=== PATIENT | male | born 1935 | race Caucasian/White ===

== ENCOUNTER 2017-03-05 13:31 | Outpatient (CLI) | payer MEDICARE ==
[2017-03-05] MEDS ORDERED: ALBUTEROL NEB 2.5 MG/3 ML INH ONE (15:00)
--- NOTE | 2017-03-05 19:22 | XRAY Report ---
EXAM: CHEST RADIOGRAPHY EXAM DATE: 03/05/2017 03:12 PM. CLINICAL HISTORY: Chronic cough since October 2016. COMPARISON: 07/02/2014. 12/30/2013. TECHNIQUE: 2 views. FINDINGS: Lungs/Pleura: Normal volumes. No focal consolidation or evidence of edema. No pleural effusion or pne umothorax. Mediastinum: Median sternotomy wires indicating prior open heart surgery. The 3 inferior median griffin otomy wires are fractured, as before. Heart size is normal. Unchanged mild aortic tortuosity. Other: The bones are unremarkable. IMPRESSION: No acute cardiopulmonary abnormality. No potential etiology identified for chronic cough. [facility] Referring Provider Line: [phone] SITE ID: [id number]
== END 2017-03-05 13:32 | disposition home or self-care (01) ==
LOC: RT 13:31
PROVIDERS: ATTEND Physician Assistant
DX: R05 Cough (principal); R06.00 Dyspnea, unspecified; R06.2 Wheezing
CPT/HCPCS: 71046; 94060; J7613

== ENCOUNTER 2017-07-04 09:19 | Outpatient (CLI) | payer MEDICARE ==
[2017-07-04 18:01] LABS: BASOPHILS % (AUTO) 0.7 %; EOSINOPHILS # (AUTO) 0.5 10^3/uL (0.0-0.7); EOSINOPHILS % (AUTO) 8.2 %; HGB - HEMOGLOBIN 13.5 g/dL (14.0-18.0); LYMPHOCYTES # (AUTO) 1.2 10^3/uL (1.5-3.5); LYMPHOCYTES % (AUTO) 18.7 %; MEAN CORPUSCULAR HEMOGLOBIN 27.1 pg (27.0-31.0); MEAN CORPUSCULAR HGB CONC 32.5 g/dL (32.0-36.0); MEAN CORPUSCULAR VOLUME 83.5 fL (80.0-94.0); MEAN PLATELET VOLUME 7.4 fL (7.4-11.4); MONOCYTES # (AUTO) 0.6 10^3/uL (0.0-1.0); MONOCYTES % (AUTO) 9.6 %; NEUTROPHILS # (AUTO) 3.9 10^3/uL (1.5-6.6); NEUTROPHILS % (AUTO) 62.8 %; PLT - PLATELET COUNT 176 10^3/uL (130-450); RED BLOOD COUNT 4.98 10^6/uL (4.70-6.10); RED CELL DISTRIBUTION WIDTH 14.7 % (12.0-15.0); WHITE BLOOD COUNT 6.2 x10^3/uL (4.8-10.8)
[2017-07-04 18:33] LABS: HB2 TOTAL 15.6 g/dL; HEMOGLOBIN A1C 0.58 g/dL; HEMOGLOBIN A1C % 5.6 % (4.6-6.2); PSA FREE < 0.005 ng/mL (0.16-2.81)
[2017-07-04 18:35] LABS: PSA FREE % 60 % (25-100); PSA TOTAL < 0.008 ng/mL (0.000-2.000)
[2017-07-04 18:39] LABS: ALBUMIN/GLOBULIN RATIO 1.5 (1.0-2.2); ALKALINE PHOSPHATASE 66 IU/L (42-121); ALT ALANINE AMINOTRANSFERASE 17 IU/L (10-60); AST ASPARTATE AMINOTRANSFERASE 19 IU/L (10-42); BILIRUBIN,TOTAL 0.7 mg/dL (0.2-1.0); BUN - BLOOD UREA NITROGEN 27 mg/dL (6-20); CALCIUM 8.6 mg/dL (8.5-10.3); CARBON DIOXIDE - CO2 25 mmol/L (21-32); CHLORIDE 106 mmol/L (101-111); CHOL/HDL RATIO 3.3 (<5.0); CHOLESTEROL 100 mg/dL; CREATININE 1.6 mg/dL (0.6-1.2); GFR - MDRD 42 (>89); GLUCOSE 97 mg/dL (70-100); HDL CHOLESTEROL 30 mg/dL; LDL CHOLESTEROL,CALCULATED 58 mg/dL; LDL/HDL RATIO 1.9 (<3.6); SODIUM 138 mmol/L (135-145); TOTAL PROTEIN 6.7 g/dL (6.7-8.2); VLDL CHOLESTEROL 12 mg/dL
== END 2017-07-04 09:20 | disposition home or self-care (01) ==
LOC: LAB.F 09:19
PROVIDERS: ATTEND Physician Assistant
DX: Z00.00 Encounter for general adult medical examination without abnormal findings (principal)
CPT/HCPCS: 36415; 80053; 80061; 83036; 83721; 84154; 85025

== ENCOUNTER 2017-07-06 11:46 | Outpatient (CLI) | payer MEDICARE ==
[2017-07-08 23:46] LABS: ANCA SCREEN NEGATIVE (NEGATIVE)
== END 2017-07-06 11:47 | disposition home or self-care (01) ==
LOC: LAB.WCP 11:46
PROVIDERS: ATTEND Physician Assistant
DX: I77.6 Arteritis, unspecified (principal)
CPT/HCPCS: 36415; 86021

== ENCOUNTER 2017-07-13 12:25 | Outpatient (CLI) | payer MEDICARE ==
--- NOTE | 2017-07-13 14:02 | CT Report ---
CT CHEST WITHOUT CONTRAST: 07/13/2017 CLINICAL INDICATION: Shortness of breath. TECHNIQUE: Axial CT images of the chest were obtained without intravenous contrast. COMPARISON: No previous CT is available for comparison. FINDINGS: The heart and great vessels demonstrate atherosclerotic calcifications. Changes of previous cardiac surgery are present. The lungs are clear. No effusion or pneumothorax is present. Osseous structures demonstrate degenerative and postsurgical changes. Limited evaluation of upper abdominal structures demonstrates an incidental splenic cyst and normal adrenal glands. IMPRESSION: NO EVIDENT ETIOLOGY FOR THE PATIENT'S SHORTNESS OF BREATH. POSTOPERATIVE CHANGES OF PREVIOUS CARDIAC SURGERY. CT DOSE REDUCTION STATEMENT In accordance with CT protocol optimization, one or more of the following dose reduction techniques were utilized for this exam: automated exposure control, adjustment of mA and/or KV based on patient size, or use of iterative reconstructive technique. TD: 07/13/2017 13:56
== END 2017-07-13 12:26 | disposition home or self-care (01) ==
LOC: DI 12:25
PROVIDERS: ATTEND Physician Assistant
DX: R06.02 Shortness of breath (principal); I51.7 Cardiomegaly; I77.810 Thoracic aortic ectasia
CPT/HCPCS: 71250; 93306

== ENCOUNTER 2017-07-25 11:38 | Outpatient (CLI) | payer MEDICARE | END 2017-07-25 11:39 | disposition critical access hospital (66) | LOC: EMS 11:38 | PROVIDERS: ATTEND Surgery | DX: R55 Syncope and collapse (principal) | CPT/HCPCS: A0425; A0427 ==

== ENCOUNTER 2017-07-25 12:07 | Emergency (ER) | payer MEDICARE ==
--- NOTE | 2017-07-25 13:52 | ED Physician Documentation ---
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 He started to feel lightheaded but kept his position due to being honor guard. He got further lightheaded and then fainted. Awoke soon after and is feeling okay Denies injury from the fall.) Preceding symptoms: Light headed, Generalized weakness. No: Headache, Chest pain, Palpitations, Abdominal pain, Nausea / vomiting Contributing factors: No: Emotional upset, Just stood up ([place] .) Similar symptoms before: Has not had sx before Recently seen: Not recently seen Review of Systems Constitutional: denies: Fever, Chills Nose: denies: Rhinorrhea / runny nose, Congestion Throat: denies: Sore throat Cardiac: denies: Chest pain / pressure, Palpitations Respiratory: denies: Dyspnea, Cough GI: denies: Abdominal Pain, Nausea, Vomiting, Diarrhea : denies: Dysuria, Frequency Skin: denies: Rash Musculoskeletal: denies: Neck pain, Back pain Neurologic: reports: Generalized weakness, Syncope. denies: Focal weakness, Numbness, Altered mental status, Headache, Head injury Psychiatric: denies: Depressed Endocrine: denies: Weight loss PD PAST MEDICAL HISTORY - Past Medical History Cardiovascular: Hypertension, Other Respiratory: COPD Neuro: Fainting Endocrine/Autoimmune: None GI: GERD : None HEENT: Chronic sinusitis Psych: None Musculoskeletal: None Derm: None Other Past Medical History: one stent placed and 4 cm aortic aneusrym - Past Surgical History Past Surgical History: Yes General: Appendectomy, Bowel surgery, Hiatal hernia repair, Colonoscopy, EGD Ortho: Arthroscopic surgery Cardiovascular: Coronary stent, Other HEENT: Cataracts - Present Medications Home Medications: Ambulatory Orders Medication Instructions Recorded Confirmed Aspirin EC [Ecotrin] 81 mg PO DAILY 01/28/13 06/26/15 Calcium [Calcio [place]] 1,000 mg PO DAILY 01/28/13 06/26/15 Acetaminophen [Pain Relief] 1 mg PO DAILY 01/29/13 06/26/15 [place]-3/Dha/Epa/Fish Oil [Fish Oil 1,200 mg PO DAILY 01/29/13 06/26/15 [place]-3 Softgel] Atorvastatin [Lipitor] 20 mg PO DAILY 12/30/13 06/26/15 Metoprolol Succinate 12.5 mg PO DAILY 07/02/14 06/26/15 Pantoprazole [Protonix] 40 mg PO BID 07/02/14 06/26/15 Potassium Gluconate 595 mg PO DAILY 07/02/14 06/26/15 diphenhydrAMINE [Benadryl] 50 mg PO DAILY PRN 07/02/14 06/26/15 Cyanocobalamin (Vitamin B-12) 500 mg PO DAILY 04/02/15 06/26/15 [B-12] Docusate Sodium 250Mg Capsule 250 mg PO DAILY 04/02/15 06/26/15 [Colace 250Mg Capsule] Doxazosin [Cardura] 8 mg PO DAILY 04/02/15 06/26/15 Multivitamin [Multivitamins] 1 tab PO DAILY 04/02/15 06/26/15 Ubidecarenone/Vitamin E Mixed 1 cap PO DAILY 04/02/15 06/26/15 [Adq64-Vjx E 200 mg-20 Unit Sfg] - Allergies Allergies/Adverse Reactions: Allergies Allergy/AdvReac Type Severity Reaction Status Date / Time No Known Drug Allergies Allergy Verified 06/25/15 13:32 - Social History Does the pt smoke?: No Smoking Status: Never smoker Does the pt drink ETOH?: No Does the pt have substance abuse?: No - Immunizations Immunizations are current?: Yes - POLST Patient has POLST: No PD ED PE NORMAL - Vitals Vital signs reviewed: Yes - General General: Alert and oriented X 3, No acute distress, Well developed/nourished - HEENT HEENT: Atraumatic, Pharynx benign - Neck Neck: Supple, no meningeal sign, No adenopathy - Cardiac Cardiac: RRR, No murmur - Respiratory Respiratory: Clear bilaterally - Abdomen Abdomen: Soft, Non tender - Back Back: No: No CVA TTP - Derm Derm: Normal color, No rash - Extremities Extremities: No deformity, No tenderness to palpate, Normal ROM s pain, No edema , No calf tenderness / cord - Neuro Neuro: Alert and oriented X 3, No motor deficit, Normal speech Results - Vitals Vitals: Vital Signs - 24 hr 05/28/18 05/28/18 12:11 14:28 Temperature 36.0 C L 36.3 C L Heart Rate 60 57 L Respiratory 16 16 Rate Blood Pressure 134/67 H 133/71 H O2 Saturation 97 97 Oxygen O2 Source Room air - EKG (time done) 12:16 Rate: Rate (enter#) (57) Rhythm: Sinus bradycardia [place]: Normal Intervals: Normal OR QRS: Normal Ischemia: Normal ST segments. No: ST elevation c/w ischemia, ST depression - Rads (name of study) head CT Radiology: Prelim report reviewed (no acute bleed.c) PD MEDICAL DECISION MAKING - ED course Complexity details: reviewed results (no ICH), considered differential, d/w patient Departure - Departure Disposition: 01 Home, Self Care Clinical Impression: Heat syncope, initial encounter Condition: Stable Record reviewed to determine appropriate education?: Yes Instructions: ED Syncope Vasovagal Follow-Up: Rissa Lee PA [Primary Care Provider] - Comments: Stay well-hydrated. Continue usual medications. Recheck if recurrent or further problems. It sounds as you suggest that it was just the heat and standing in the same position because the blood pressure to drop momentarily. You look good now and there is no obvious concerns for more significant problems at this time. Discharge Date/Time: 07/25/17 14:30
[2017-07-25 14:29] VITALS: BP 133/71
== END 2017-07-25 14:30 | disposition home or self-care (01) ==
LOC: EDUNIT# → ED 12:07
DX: T67.1XXA Heat syncope, initial encounter (principal); I10 Essential (primary) hypertension; J44.9 Chronic obstructive pulmonary disease, unspecified; Z79.82 Long term (current) use of aspirin
CPT/HCPCS: 93005; 99283; 99284

== ENCOUNTER 2018-08-28 08:13 | Outpatient (CLI) | payer MEDICARE ==
[2018-08-28 10:17] LABS: BASOPHILS % (AUTO) 0.5 %; EOSINOPHILS # (AUTO) 0.3 10^3/uL (0.0-0.7); EOSINOPHILS % (AUTO) 4.5 %; HGB - HEMOGLOBIN 13.2 g/dL (14.0-18.0); LYMPHOCYTES # (AUTO) 1.5 10^3/uL (1.5-3.5); LYMPHOCYTES % (AUTO) 27.3 %; MEAN CORPUSCULAR HEMOGLOBIN 28.4 pg (27.0-31.0); MEAN CORPUSCULAR HGB CONC 32.1 g/dL (32.0-36.0); MEAN CORPUSCULAR VOLUME 88.4 fL (80.0-94.0); MONOCYTES # (AUTO) 0.5 10^3/uL (0.0-1.0); MONOCYTES % (AUTO) 9.4 %; NEUTROPHILS # (AUTO) 3.2 10^3/uL (1.5-6.6); NEUTROPHILS % (AUTO) 58.1 %; PLT - PLATELET COUNT 166 10^3/uL (130-450); RED BLOOD COUNT 4.65 10^6/uL (4.70-6.10); RED CELL DISTRIBUTION WIDTH 13.2 % (12.0-15.0); WHITE BLOOD COUNT 5.5 x10^3/uL (4.8-10.8)
[2018-08-28 10:32] LABS: ALBUMIN/GLOBULIN RATIO 1.4 (1.0-2.2); ALKALINE PHOSPHATASE 60 IU/L (42-121); ALT ALANINE AMINOTRANSFERASE 16 IU/L (10-60); AST ASPARTATE AMINOTRANSFERASE 18 IU/L (10-42); BILIRUBIN,TOTAL 0.9 mg/dL (0.2-1.0); BUN - BLOOD UREA NITROGEN 25 mg/dL (6-20); CALCIUM 8.9 mg/dL (8.5-10.3); CARBON DIOXIDE - CO2 22 mmol/L (21-32); CHLORIDE 105 mmol/L (101-111); CHOL/HDL RATIO 3.1 (<5.0); CHOLESTEROL 97 mg/dL; CREATININE 1.5 mg/dL (0.6-1.2); GFR - MDRD 45 (>89); GLUCOSE 97 mg/dL (70-100); HDL CHOLESTEROL 31 mg/dL; LDL CHOLESTEROL,CALCULATED 53 mg/dL; LDL/HDL RATIO 1.7 (<3.6); SODIUM 138 mmol/L (135-145); TOTAL PROTEIN 6.9 g/dL (6.7-8.2); VLDL CHOLESTEROL 13 mg/dL
== END 2018-08-28 08:14 | disposition home or self-care (01) ==
LOC: LAB.S 08:13
PROVIDERS: ATTEND Physician Assistant
DX: I10 Essential (primary) hypertension (principal); E78.5 Hyperlipidemia, unspecified; Z12.5 Encounter for screening for malignant neoplasm of prostate
CPT/HCPCS: 36415; 80053; 80061; 85025; G0103; 83721; 84153

== ENCOUNTER 2018-09-12 09:01 | Outpatient (CLI) | payer MEDICARE ==
[2018-09-12 18:11] LABS: % IRON SATURATION 27 % (20-50); IRON 65 ug/dL (45-182); TOTAL IRON BINDING CAPACITY 244 ug/dL (250-450); TRANSFERRIN 174 mg/dL (180-329)
== END 2018-09-12 09:02 | disposition home or self-care (01) ==
LOC: LAB.S 09:01
PROVIDERS: ATTEND Physician Assistant
DX: R68.89 Other general symptoms and signs (principal)
CPT/HCPCS: 36415; 83540; 84466

== ENCOUNTER 2018-10-17 13:55 | Outpatient (CLI) | payer MEDICARE ==
[2018-10-17 18:48] LABS: CALCIUM 8.8 mg/dL (8.5-10.3); CREATININE 2.1 mg/dL (0.6-1.2)
== END 2018-10-17 23:59 ==
LOC: LAB.WCP 13:55
PROVIDERS: ATTEND Physician Assistant
DX: Z79.899 Other long term (current) drug therapy (principal)
CPT/HCPCS: 36415; 80048

== ENCOUNTER 2018-11-06 08:00 | Outpatient (CLI) | payer MEDICARE ==
[2018-11-06 17:24] LABS: CALCIUM 9.1 mg/dL (8.5-10.3); CREATININE 1.9 mg/dL (0.6-1.2)
== END 2018-11-06 23:59 | disposition home or self-care (01) ==
LOC: LAB.S 08:00
PROVIDERS: ATTEND Physician Assistant
DX: Z79.899 Other long term (current) drug therapy (principal); Z51.81 Encounter for therapeutic drug level monitoring
CPT/HCPCS: 36415; 80048

== ENCOUNTER 2018-11-20 13:14 | Outpatient (CLI) | payer MEDICARE ==
[2018-11-20 18:38] LABS: BASOPHILS % (AUTO) 0.3 %; EOSINOPHILS # (AUTO) 0.1 10^3/uL (0.0-0.7); EOSINOPHILS % (AUTO) 2.4 %; HGB - HEMOGLOBIN 13.3 g/dL (14.0-18.0); LYMPHOCYTES # (AUTO) 1.2 10^3/uL (1.5-3.5); LYMPHOCYTES % (AUTO) 20.8 %; MEAN CORPUSCULAR HEMOGLOBIN 28.6 pg (27.0-31.0); MEAN CORPUSCULAR VOLUME 89.5 fL (80.0-94.0); MEAN PLATELET VOLUME 8.8 fL (7.4-11.4); MONOCYTES # (AUTO) 0.5 10^3/uL (0.0-1.0); MONOCYTES % (AUTO) 8.1 %; NEUTROPHILS % (AUTO) 68.1 %; PLT - PLATELET COUNT 166 10^3/uL (130-450); RED BLOOD COUNT 4.65 10^6/uL (4.70-6.10); RED CELL DISTRIBUTION WIDTH 13.7 % (12.0-15.0); WHITE BLOOD COUNT 5.9 x10^3/uL (4.8-10.8)
[2018-11-20 18:56] LABS: CALCIUM 9.1 mg/dL (8.5-10.3); CREATININE 1.5 mg/dL (0.6-1.2)
== END 2018-11-20 13:15 | disposition home or self-care (01) ==
LOC: LAB.S 13:14
PROVIDERS: ATTEND Physician Assistant
DX: N18.9 Chronic kidney disease, unspecified (principal)
CPT/HCPCS: 36415; 80048; 85025

== ENCOUNTER 2019-02-12 10:51 | Outpatient (CLI) | payer MEDICARE ==
--- NOTE | 2019-02-13 16:41 | CT Report ---
Reason: PULMONARY NODULE Procedure Date: 02/12/2019 Accession Number: [id number] / [id number] Procedure: CT - CHEST WO CPT Code: Final Report FULL RESULT: EXAM: CT CHEST EXAM DATE: 02/12/2019 11:13 AM. CLINICAL HISTORY: PULMONARY NODULE. History of a ascending aortic aneurysm COMPARISONS: CHEST W/O 07/13/2017 12:43 PM CHEST 2 VIEW PA/LAT 07/06/2017 10:51 AM. Chest without October 25 2018 performed at [facility] TECHNIQUE: Routine helical CT imaging was performed through the chest. IV contrast: None. Reconstructions: Coronal and sagittal. In accordance with CT protocol optimization, one or more of the following dose reduction techniques were utilized for this exam: automated exposure control, adjustment of mA and/or KV based on patient size, or use of iterative reconstructive technique. FINDINGS: Lungs/Pleura: One calcified granuloma . No suspicious nodules, bronchial thickening, consolidation, or edema. Pulmonary vasculature is normal. No pericardial or pleural effusion. No pneumothorax. Mediastinum: Prior CABG. Maximum ascending aorta diameter 3. 3.9 cm and . Extensive arterial calcification. No adenopathy or masses. Bones: Unremarkable. Included upper Abdomen: Small splenic cyst 108. Right renal calcification 122. Small left renal cyst 120. Tiny hepatic low attenuation small to characterize. Other: Stable poststernotomy changes with dehiscence of at least the 3 inferior sternal wires. Inferior sternal dehiscence similar to previous measuring approximately 1 cm. Degenerative change in the spine. IMPRESSION: 1. Stable chest CT compared with 10/25/2018 and 07/13/2017. 2. No pulmonary nodules. 3. Status post CABG. Several dehiscent sternal wires. Extensive arterial calcification. 4. Maximum ascending aorta diameter 3.9 cm. 5. Incidental changes upper abdomen as above. [facility]
== END 2019-02-12 10:52 | disposition home or self-care (01) ==
LOC: DI 10:51
PROVIDERS: ATTEND Physician Assistant
DX: R91.1 Solitary pulmonary nodule (principal); Z95.1 Presence of aortocoronary bypass graft; I70.90 Unspecified atherosclerosis
CPT/HCPCS: 71250

== ENCOUNTER 2019-02-13 08:14 | Outpatient (CLI) | payer MEDICARE ==
[2019-02-13 18:57] LABS: BASOPHILS % (AUTO) 0.3 %; EOSINOPHILS # (AUTO) 0.2 10^3/uL (0.0-0.7); EOSINOPHILS % (AUTO) 2.6 %; HGB - HEMOGLOBIN 12.8 g/dL (14.0-18.0); LYMPHOCYTES # (AUTO) 1.3 10^3/uL (1.5-3.5); LYMPHOCYTES % (AUTO) 19.2 %; MEAN CORPUSCULAR HEMOGLOBIN 28.2 pg (27.0-31.0); MEAN CORPUSCULAR HGB CONC 30.8 g/dL (32.0-36.0); MEAN CORPUSCULAR VOLUME 91.4 fL (80.0-94.0); MONOCYTES # (AUTO) 0.5 10^3/uL (0.0-1.0); MONOCYTES % (AUTO) 7.8 %; NEUTROPHILS # (AUTO) 4.6 10^3/uL (1.5-6.6); NEUTROPHILS % (AUTO) 69.6 %; PLT - PLATELET COUNT 187 10^3/uL (130-450); RED BLOOD COUNT 4.54 10^6/uL (4.70-6.10); RED CELL DISTRIBUTION WIDTH 13.6 % (12.0-15.0); WHITE BLOOD COUNT 6.6 x10^3/uL (4.8-10.8)
[2019-02-13 19:19] LABS: ALBUMIN 4.2 g/dL (3.2-5.5); ALBUMIN/GLOBULIN RATIO 1.4 (1.0-2.2); BILIRUBIN,TOTAL 0.6 mg/dL (0.2-1.0); CALCIUM 8.7 mg/dL (8.5-10.3); CREATININE 1.7 mg/dL (0.6-1.2); TOTAL PROTEIN 7.2 g/dL (6.7-8.2)
== END 2019-02-13 23:59 ==
LOC: LAB.WCP 08:14
PROVIDERS: ATTEND Physician Assistant
DX: I12.9 Hypertensive chronic kidney disease with stage 1 through stage 4 chronic kidney disease, or unspecified chronic kidney disease (principal); N18.9 Chronic kidney disease, unspecified
CPT/HCPCS: 36415; 80053; 85025

== ENCOUNTER 2019-02-13 11:40 | Outpatient (CLI) | payer MEDICARE ==
--- NOTE | 2019-02-13 22:07 | XRAY Report ---
Reason: ARTHRITIS BILATERAL HIPS Procedure Date: 02/13/2019 Accession Number: [id number] / [id number] Procedure: WCP - Hip BILAT CPT Code: Final Report FULL RESULT: EXAM: BILATERAL HIP RADIOGRAPHY EXAM DATE: 02/13/2019 11:40 AM. CLINICAL HISTORY: Chronic bilateral hip pain. COMPARISON: HIP 2 VIEW LT 03/21/2018 10:14 AM. TECHNIQUE: 2 views each. FINDINGS: Bones: No significant change. No acute fracture noted. Right Hip: Mild osteoarthritic changes present. No evidence of dislocation seen. Left Hip: Mild osteoarthritic changes present. No evidence of dislocation seen. Soft Tissues: Postsurgical changes noted about the lower pelvis. Metallic prostatic seeds are noted. Probable penile implant noted. IMPRESSION: Mild osteoarthritic changes without acute fracture. [facility]
== END 2019-02-13 23:59 | disposition home or self-care (01) ==
LOC: DI.WCP 11:40
PROVIDERS: ATTEND Physician Assistant
DX: M16.0 Bilateral primary osteoarthritis of hip (principal); I12.9 Hypertensive chronic kidney disease with stage 1 through stage 4 chronic kidney disease, or unspecified chronic kidney disease; N18.9 Chronic kidney disease, unspecified
CPT/HCPCS: 36415; 73521; 80053; 85025

== ENCOUNTER 2019-03-28 07:59 | Day surgery (SDC) | payer MEDICARE ==
[~2019-03-28 07:59] MED LIST: SODIUM/POTASSIUM/MAG SULFATES 354 ML PREP KIT PO SCH
[2019-03-28] MEDS ORDERED: LACTATED RINGERS 1,000 ML IV ONE (08:20)
[2019-03-28] MEDS ORDERED: LIDO GARGLE 30 ML BOTTLE ONE (08:46)
[2019-03-28] MEDS ORDERED: MIDAZOLAM 2 MG/2 ML VIAL IVP ONE (09:04)
[2019-03-28] MEDS ORDERED: fentaNYL 250 MCG/5 ML VIAL IVP ONE (09:04)
[2019-03-28 10:40] VITALS: BP 108/52
== END 2019-03-28 08:00 | disposition home or self-care (01) ==
LOC: SDS 07:59
PROVIDERS: ATTEND Internal Medicine Gastroenterology
PROC: 0DB48ZZ Excision of Esophagogastric Junction, Via Natural or Artificial Opening Endoscopic (ICD-10-PCS; 2019-03-28)
PROC: 0DBK8ZZ Excision of Ascending Colon, Via Natural or Artificial Opening Endoscopic (ICD-10-PCS; 2019-03-28)
PROC: 0DBL8ZZ Excision of Transverse Colon, Via Natural or Artificial Opening Endoscopic (ICD-10-PCS; 2019-03-28)
PROC: 0DBF8ZX Excision of Right Large Intestine, Via Natural or Artificial Opening Endoscopic, Diagnostic (ICD-10-PCS; 2019-03-28)
PROC: 0DBG8ZX Excision of Left Large Intestine, Via Natural or Artificial Opening Endoscopic, Diagnostic (ICD-10-PCS; 2019-03-28)
PROC: 0DB98ZX Excision of Duodenum, Via Natural or Artificial Opening Endoscopic, Diagnostic (ICD-10-PCS; principal; 2019-03-28 09:00)
PROC: 0DB68ZZ Excision of Stomach, Via Natural or Artificial Opening Endoscopic (ICD-10-PCS; 2019-03-28 09:00)
DX: R19.7 Diarrhea, unspecified (principal); K22.70 Barrett's esophagus without dysplasia; K31.7 Polyp of stomach and duodenum; D12.2 Benign neoplasm of ascending colon; D12.3 Benign neoplasm of transverse colon; K57.30 Diverticulosis of large intestine without perforation or abscess without bleeding; I12.9 Hypertensive chronic kidney disease with stage 1 through stage 4 chronic kidney disease, or unspecified chronic kidney disease; N18.3 Chronic kidney disease, stage 3 (moderate); Z85.46 Personal history of malignant neoplasm of prostate; Z79.899 Other long term (current) drug therapy; Z95.5 Presence of coronary angioplasty implant and graft; Z87.19 Personal history of other diseases of the digestive system; Z80.0 Family history of malignant neoplasm of digestive organs; Z82.49 Family history of ischemic heart disease and other diseases of the circulatory system; Z90.49 Acquired absence of other specified parts of digestive tract; Z87.891 Personal history of nicotine dependence
CPT/HCPCS: 43239; 45380; A9270; J3010; J7120

== ENCOUNTER 2019-04-30 11:24 | Outpatient (CLI) | payer MEDICARE ==
[2019-04-30 17:16] LABS: HGB - HEMOGLOBIN 12.8 g/dL (14.0-18.0); MEAN CORPUSCULAR HEMOGLOBIN 28.7 pg (27.0-31.0); MEAN CORPUSCULAR HGB CONC 31.1 g/dL (32.0-36.0); MEAN CORPUSCULAR VOLUME 92.2 fL (80.0-94.0); MEAN PLATELET VOLUME 9.4 fL (7.4-11.4); RED BLOOD COUNT 4.46 10^6/uL (4.70-6.10); RED CELL DISTRIBUTION WIDTH 13.1 % (12.0-15.0); WHITE BLOOD COUNT 4.2 x10^3/uL (4.8-10.8)
[2019-04-30 17:25] LABS: CALCIUM 8.8 mg/dL (8.5-10.3); CREATININE 1.6 mg/dL (0.6-1.2)
[2019-04-30 17:27] LABS: CREATININE,URINE 137.8 mg/dL; PROTEIN/CREATININE RATIO,URINE 0.1 (<=0.2)
== END 2019-04-30 11:25 | disposition home or self-care (01) ==
LOC: LAB.S 11:24
PROVIDERS: ATTEND Internal Medicine Nephrology
DX: N05.9 Unspecified nephritic syndrome with unspecified morphologic changes (principal); D70.9 Neutropenia, unspecified; D63.1 Anemia in chronic kidney disease; R80.9 Proteinuria, unspecified; N18.9 Chronic kidney disease, unspecified
CPT/HCPCS: 36415; 80048; 82570; 84156; 85027

== ENCOUNTER 2020-07-01 10:41 | Outpatient (CLI) | payer MEDICARE ==
[2020-07-01 14:21] LABS: BASOPHILS % (AUTO) 0.6 %; EOSINOPHILS # (AUTO) 0.3 10^3/uL (0.0-0.7); EOSINOPHILS % (AUTO) 4.1 %; HCT - HEMATOCRIT 40.9 % (42.0-52.0); HGB - HEMOGLOBIN 12.7 g/dL (14.0-18.0); LYMPHOCYTES # (AUTO) 1.6 10^3/uL (1.5-3.5); LYMPHOCYTES % (AUTO) 24.4 %; MEAN CORPUSCULAR HGB CONC 31.1 g/dL (32.0-36.0); MEAN CORPUSCULAR VOLUME 90.1 fL (80.0-94.0); MEAN PLATELET VOLUME 9.5 fL (7.4-11.4); MONOCYTES # (AUTO) 0.6 10^3/uL (0.0-1.0); MONOCYTES % (AUTO) 8.7 %; NEUTROPHILS # (AUTO) 3.9 10^3/uL (1.5-6.6); NEUTROPHILS % (AUTO) 61.9 %; PLT - PLATELET COUNT 198 10^3/uL (130-450); RED BLOOD COUNT 4.54 10^6/uL (4.70-6.10); RED CELL DISTRIBUTION WIDTH 13.1 % (12.0-15.0); WHITE BLOOD COUNT 6.3 x10^3/uL (4.8-10.8)
[2020-07-01 14:50] LABS: ALBUMIN 4.3 g/dL (3.2-5.5); ALBUMIN/GLOBULIN RATIO 1.4 (1.0-2.2); ALKALINE PHOSPHATASE 60 IU/L (42-121); ALT ALANINE AMINOTRANSFERASE 16 IU/L (10-60); AST ASPARTATE AMINOTRANSFERASE 15 IU/L (10-42); BILIRUBIN,TOTAL 0.9 mg/dL (0.2-1.0); BUN - BLOOD UREA NITROGEN 38 mg/dL (6-20); CALCIUM 9.6 mg/dL (8.5-10.3); CARBON DIOXIDE - CO2 26 mmol/L (21-32); CHLORIDE 104 mmol/L (101-111); CHOL/HDL RATIO 2.8 (<5.0); CHOLESTEROL 100 mg/dL; GFR - MDRD 32 (>89); GLUCOSE 100 mg/dL (70-100); HDL CHOLESTEROL 36 mg/dL; LDL CHOLESTEROL,CALCULATED 49 mg/dL; LDL/HDL RATIO 1.4 (<3.6); POTASSIUM 4.2 mmol/L (3.5-5.0); SODIUM 140 mmol/L (135-145); TOTAL PROTEIN 7.4 g/dL (6.7-8.2); TRIGLYCERIDES 75 mg/dL; VLDL CHOLESTEROL 15 mg/dL
== END 2020-07-01 10:42 | disposition home or self-care (01) ==
LOC: LAB.S 10:41
PROVIDERS: ATTEND Internal Medicine
DX: Z00.00 Encounter for general adult medical examination without abnormal findings (principal); Z79.899 Other long term (current) drug therapy; I10 Essential (primary) hypertension; R78.5 Finding of other psychotropic drug in blood
CPT/HCPCS: 36415; 80053; 80061; 83721; 85025

== ENCOUNTER 2020-07-10 07:18 | Outpatient (CLI) | payer MEDICARE ==
--- NOTE | 2020-07-10 11:24 | XRAY Report ---
PROCEDURE: Hip w/Pelvis 2-3V LT INDICATIONS: ARTHRITIS, LEFT HIP TECHNIQUE: AP pelvis with lateral view(s) of the bilateral hip(s). COMPARISON: None. FINDINGS: Bones: No fractures or dislocations. Pelvic ring appears intact. No suspicious bony lesions. Thuy re left and moderate right hip joint space narrowing. Moderate peritoneal ossified formation at the b ilateral hip joints. Bilateral femoral head/neck junction buttressing. Soft tissues: The visualized bowel gas pattern is normal. No suspicious soft tissue calcifications. IMPRESSION: 1. 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 Next line 2. Findings suggestive of femoral acetabular impingement. Further assessment with MRI is recommended. 3. No acute fracture. No osseous lesion. If symptoms and/or clinical suspicion for pathology continue , further assessment with repeat plain films, or advanced imaging (e.g., CT, MRI, or bone scan) is re commended for further assessment. Reviewed by: Dlilon Nicholson MD on 07/10/2020 11:22 AM PDT Approved by: Dillon Nicholson MD on 07/10/2020 11:22 AM PDT Station ID: [id number]
== END 2020-07-10 23:59 | disposition home or self-care (01) ==
LOC: DI.N 07:18
PROVIDERS: ATTEND Orthopaedic Surgery
DX: M16.0 Bilateral primary osteoarthritis of hip (principal); R93.6 Abnormal findings on diagnostic imaging of limbs

== ENCOUNTER 2020-07-25 10:49 | Outpatient (CLI) | payer MEDICARE | END 2020-07-25 10:50 | disposition home or self-care (01) | LOC: RT 10:49 | PROVIDERS: ATTEND Registered Nurse | DX: Z01.810 Encounter for preprocedural cardiovascular examination (principal); M16.12 Unilateral primary osteoarthritis, left hip | CPT/HCPCS: 93005 ==

== ENCOUNTER 2020-07-25 11:13 | Outpatient (CLI) | payer MEDICARE | END 2020-07-25 11:14 | disposition home or self-care (01) | LOC: LAB 11:13 | PROVIDERS: ATTEND Orthopaedic Surgery | DX: Z01.812 Encounter for preprocedural laboratory examination (principal); M16.12 Unilateral primary osteoarthritis, left hip; Z20.822 Contact with and (suspected) exposure to COVID-19 ==

== ENCOUNTER 2020-07-30 06:28 | Day surgery (SDC) | payer MEDICARE ==
[~2020-07-30 06:28] MED LIST changes: +ACETAMINOPHEN 500 MG TABLET PO ONE; +DEXAMETHASONE 10 MG/ML VIAL ONE; -SODIUM/POTASSIUM/MAG SULFATES 354 ML PREP KIT PO SCH; +ceFAZolin 2 GM/50 ML 2 GM/50 ML BAG IV ONE
[2020-07-30] MEDS ORDERED: LACTATED RINGERS 1,000 ML IV ONE (06:36)
[2020-07-30] MEDS ORDERED: PROPOFOL 1000 MG/100 ML 1,000 MG/100 ML BOTTLE IV ONE (06:45)
[2020-07-30] MEDS ORDERED: TRANEXAMIC ACID 1,000 MG/10 ML VIAL ONE (06:45)
[2020-07-30] MEDS ORDERED: MIDAZOLAM 2 MG/2 ML VIAL ONE (06:46)
[2020-07-30] MEDS ORDERED: BUPIVACAINE 0.5% PF 10 ML VIAL ONE (06:46)
[2020-07-30] MEDS ORDERED: SODIUM CHLORIDE 0.9% 10 ML VIAL IVP ONE (06:51)
[2020-07-30] MEDS ORDERED: ROPIVACAINE 0.5% PF 20 ML AMPULE ONE (06:51)
[2020-07-30] MEDS ORDERED: DEXAMETHASONE 10 MG/ML VIAL ONE (06:51)
[2020-07-30] MEDS ORDERED: VANCOMYCIN 1 GM VIAL ONE (07:10)
[2020-07-30] MEDS ORDERED: ATROPINE ABBOJECT 1 MG/10 ML SYRINGE IVP PRN (07:24)
[2020-07-30] MEDS ORDERED: METOCLOPRAMIDE 10 MG/2 ML VIAL IVP PRN (07:24)
[2020-07-30] MEDS ORDERED: HYDROmorphone 0.5 MG/0.5 ML SYRINGE IVP PRN (07:24)
[2020-07-30] MEDS ORDERED: fentaNYL 100 MCG/2 ML VIAL IVP PRN (07:24)
[2020-07-30] MEDS ORDERED: ePHEDrine 50 MG/ML VIAL IVP PRN (07:24)
[2020-07-30] MEDS ORDERED: MORPHINE 2 MG/ML CARPUJECT IVP PRN (07:24)
[2020-07-30] MEDS ORDERED: ONDANSETRON 4 MG/2 ML VIAL IVP PRN ×2 (07:24→10:36)
[2020-07-30] MEDS ORDERED: NALOXONE 0.4 MG/ML VIAL IVP PRN (07:24)
--- NOTE | 2020-07-30 07:24 | ANESTHESIA ---
Pre-Anesthesia VS, & Labs - Diagnosis L hip arthritis - Procedure L hip arthroplasty Vital Signs: Temp Pulse Resp BP Pulse Ox 36 C L 63 18 154/82 H 97 07/30/20 06:36 07/30/20 06:36 07/30/20 06:36 07/30/20 06:36 07/30/20 06:36 Height: 5 ft 10 in Weight (kg): 86 kg Body Mass Index: 27.1 BMI Classification: Overweight - NPO >8 hours - Lab Results Current Lab Results: Laboratory Tests 07/30/20 07:09: POC Whole Bld Glucose 95 Home Medications and Allergies Home Medications: Ambulatory Orders Celecoxib [Celebrex] 200 mg PO BID 07/21/20 Montelukast [Singulair] 10 mg PO QPM 07/21/20 Acetaminophen [Pain Relief] 1,000 mg PO TID 01/29/13 Atorvastatin [Lipitor] 20 mg PO DAILY 12/30/13 Metoprolol Succinate 25 mg PO DAILY 07/02/14 Pantoprazole [Protonix] 40 mg PO DAILY 07/02/14 Doxazosin [Cardura] 8 mg PO DAILY 04/02/15 Chlorthalidone 25 mg PO DAILY 03/27/19 Celecoxib [Celebrex] 200 mg PO BID 07/21/20 Montelukast [Singulair] 10 mg PO QPM 07/21/20 Allergies/Adverse Reactions: Allergies Allergy/AdvReac Type Severity Reaction Status Date / Time No Known Drug Allergies Allergy Verified 06/25/15 13:32 Anes History & Medical History - Anesthetic History Anesthesia Complications: reports: No previous complications Family history of Anesthesia Complications: Denies Family history of Malignant Hyperthermia: Denies - Medical History Cardiovascular: reports: Hypertension, High cholesterol, Atrial fibrillation Pulmonary: reports: Asthma Gastrointestinal: reports: GERD, Hepatitis Urinary: reports: Benign prostate hypertrophy, Kidney stones Neuro: reports: Fainting Musculoskeletal: reports: Osteoarthritis, Chronic back pain Endocrine/Autoimmune: reports: None Skin: reports: None Smoking Status: Never smoker - Surgical History General: reports: Appendectomy, Bowel surgery, Colonoscopy, EGD Eyes Ears Nose Throat (EENT): reports: Cataracts Cardiothoracic: reports: Coronary stent, Other Urologic: reports: Bladder surgery, Prostatic surgery Orthopedic: reports: Arthroscopic surgery Exam General: Alert, Oriented x3, Cooperative Dental: Dentures full Upper, Dentures full Lower Mouth Openin Fingerbreadth Neck Mobility: Normal Mallampati classification: II Thyromental Distance: 4-6 cm Respiratory: Lungs clear Cardiovascular: Regular rate Plan Anesthesia Type: General, Spinal, Total IV, Fascia Iliaca Block Regional Block: Per Surgeon's request for Post Op pain control Consent for Procedure(s) Verified and Reviewed: Yes Code Status: Attempt Resuscitation ASA classification: 3-Severe systemic disease Is this case an emergency?: No
[2020-07-30] MEDS ORDERED: LACTATED RINGERS 1,000 ML IV SCH (08:00)
[2020-07-30] MEDS ORDERED: VANCOMYCIN 1 GM VIAL MC ONE (08:33)
[2020-07-30] MEDS ORDERED: LACTATED RINGERS 550 ML IV ONE (10:12)
--- NOTE | 2020-07-30 10:28 | OPERATIVE REPORT ---
Operative Report - General Procedure Date: 07/30/20 Planned Procedure: Left total hip arthroplasty Pre-Op Diagnosis: Osteoarthritis left hip Procedure Performed: Left total hip arthroplasty using [employer] total hip: Size 9 standard offs et anthology porous femoral component, 36 mm +4 cobalt chrome femoral head 56 mm R3 porous acetabular component with neutral XLP E acetabular liner, noncemented technique Post Op Diagnosis: Same as preoperative diagnosis - Procedure Note Primary Surgeon: Hiram Grimes MD Secondary Surgeon: Gilbert Worley MD Anesthesia Provider: Fabio Rollins CRNA Anesthesia Technique: Regional block, Spinal Estimated Blood Loss (mL): 200 Indications: This is an 84-year-old man with progressive pain with weightbearing activities to his left groin and upper thigh. His symptoms and nonoperative treatment have been outlined in his preoperative history and physical. He had painful and limited movement left hip, antalgic gait, x-ray findings that showed complete loss of hip joint space. He had preoperative medical evaluation. Findings: He had osteophytes about the femoral neck and complete loss of articular cartilage to the femoral head with eburnated bone surface. Most of the acetabular cartilage had considerable articular cartilage wear as well. Complications: None - Other Other Information/Narrative: After satisfactory spinal anesthesia had been achieved, the patient was placed in a lateral decubitus position with the left hip facing superiorly. He was secured in the lateral decubitus position using a pegboard with 2 post securing the torso and 2 posts securing the pelvis. The left hip and left lower extremity were prepped and draped in a sterile manner in the usual fashion. A timeout procedure was performed by the entire operating room team and all were in agreement. A longitudinal incision was made about the lateral right hip beginning at the vastus lateralis ridge of the proximal femur and extending it proximally approximately 3 fingerbreadths above the trochanter. The subcutaneous tissue and fascia katy were split in line with the incision. The anterior one third of the gluteus medius was incised at the myotendinous junction. The gluteus medius was retracted medially. The hip capsule was exposed and was split in a T-shaped fashion. Part of the anterior hip capsule was excised. The femoral head was dislocated with flexion, adduction and external rotation. An osteotomy was done to the femoral neck using a osteotomy guide. Retractors were placed behind the femoral neck to protect the soft tissues from the oscillating saw. The proximal femur was retracted. 2 acetabular retractors were placed one anteriorly directly against bone to reduce any soft tissue impingement to femoral nerve. The second retractor was placed more posteriorly directly against bone and preventing any impingement against sciatic nerve. The acetabulum was prepared with a large curette. Medialization of the acetabulum was performed with a small acetabular reamer and then widening was done up to a 55 mm reamer the final reamers were placed in approximately 20 degrees anteversion and 45 degrees of abduction. A trial acetabular component was inserted, 55 mm and this fit well. A permanent 56 mm R3 acetabular 3-hole component was then impacted in 40 degrees of abduction and approximately 20 degrees of anteversion. This had good fixation to push pull and rotation. A single 30 mm superior acetabular screw was inserted. The stability of the acetabular cup was very good. A trial acetabular liner was inserted into the cup. The femoral canal was opened with a box osteotome, starting reamer and then a short broach. Broaching was carried out to a #9. Calcar reaming was performed. Good fit and stability to the #9 stem was achieved. Trial reduction was performed. Hip motion was very good and the hip was stable to dislocation maneuvers. The trial components were removed. A permanent acetabular liner was impacted into the acetabular cup. The #9 Anthology femoral stem was impacted and fully seated. The femoral head was impacted on the femoral trunnion. There was good stability to push pull and rotation. A 36 mm +4 head was impacted on the trunnion. The hip was reduced, had good leg length tension and good stability with dislocation maneuvers. 3-minute lavage with dilute Betadine was performed. Vancomycin 2 gram powder was inserted. The hip abductors were repaired at the myotendinous junction with #1 Vicryl. The fascia katy was closed with #1 Vicryl. The subcutaneous tissue was closed with 2-0 Vicryl. The skin was closed with a 3-0 Monocryl subcuticular closure and Dermabond. He tolerated the procedure well. A physician embroidery assistant was utilized during the procedure to provide retraction and protection of neurovascular structures as well as to facilitate dislocation and reduction of the hip joint.
[2020-07-30] MEDS ORDERED: SODIUM CHLORIDE FLUSH 0.9% 10 ML SYRINGE IVP PRN (10:36)
--- NOTE | 2020-07-30 11:10 | XRAY Report ---
PROCEDURE: Pelvis 1 View INDICATIONS: LEFT TOTAL HIP TECHNIQUE: 1 view(s) of the pelvis acquired. COMPARISON: Pelvis x-ray dated 07/10/2020 FINDINGS: Bones: No fractures or dislocations. No suspicious bony lesions. Left hip arthroplasty is present, expected position. Penile prosthesis. Soft tissues: Visualized bowel gas pattern is normal. No suspicious soft tissue calcifications. IMPRESSION: Expected appearance of left hip arthroplasty. Reviewed by: Dillon Nicholson MD on 07/30/2020 11:09 AM PDT Approved by: Dillon Nicholson MD on 07/30/2020 11:09 AM PDT Station ID: [id number]
--- NOTE | 2020-07-30 11:48 | ANESTHESIA POST OP EVALUATION ---
Anesthesia Post Eval - Post Anesthesia Eval Vitals: Last Vital Signs Temp 36.3 C L 07/30/20 11:02 Pulse 51 L 07/30/20 11:32 Resp 17 07/30/20 11:32 BP 149/79 H 07/30/20 11:32 Pulse Ox 99 07/30/20 11:32 CV Function Including HR & BP: Stable Pain Control: Satisfactory Nausea & Vomiting: Negative Mental Status: Baseline Respiratory Status: Airway Patent Hydration Status: Satisfactory Anesthesia Complications: None
[2020-07-30] MEDS: ACETAMINOPHEN 500 MG TABLET PO SCH ×3 (12:12→23:46)
--- NOTE | 2020-07-30 12:33 | CONSULTATION NOTE ---
Referring Provider Name of Referring Provider:: Dr Hiram Grimes Consult Date: 07/30/20 Chief Complaint - Chief Complaint Chief Complaint: Medical Management History of Present Illness - Admitted From Admitted From:: Direct Admit - History Obtained From Records Reviewed: yes History obtained from: patient - History of Present Illness HPI Comment/Other: Patient is an 84-year-old male with medical history significant for prostate cancer status post seed implantation, history of bladder tumor status post resection, coronary artery disease with stents placed in December 2014, chronic kidney disease, peptic ulcer disease with history of bleeding ulcer, hemorrhoids, hyperparathyroidism status post thyroidectomy and kidney stones who presented to the hospital today for a planned left total hip replacement. This was done by Dr. Hiram Grimes. Patient is currently status post surgery, resting comfortably in bed and having lunch. We were consulted for medical management due to his comorbidities. He denies any chest pain, dyspnea, abdominal pain, nausea, vomiting, fever or chills. History - Past Medical History Cardiovascular: reports: Hypertension, High cholesterol, Coronary artery disease, Atrial fibrillation Respiratory: reports: Asthma Neuro: reports: Fainting Endocrine/Autoimmune: reports: None, Other (Hyperparathyroidism) GI: reports: GERD, Ulcers (peptic), Hemorrhoids, Hepatitis : reports: Benign prostate hypertrophy, Kidney stones HEENT: reports: Chronic vision loss, Chronic hearing loss Psych: reports: None Musculoskeletal: reports: Osteoarthritis, Chronic back pain Derm: reports: None MRSA Hx?: No Other Past Medical History: Hx of prostate cancer. Hx of bladder tumors - Past Surgical History General: reports: Appendectomy, Bowel surgery, Colonoscopy, EGD, Other (hernia repairs) Ortho: reports: Arthroscopic surgery Cardiovascular: reports: Coronary stent, Other HEENT: reports: Cataracts Other past surgical history: Sternotomy for Parathyroidectomy 2009. Bladder wall tumor removal. TURP in 1984. Vasectomy in 1966 - Family & Social History Family History Comment/Other: According to records mother leave to EEG of 89 without any known medical problems. Father was diagnosed with colon cancer at age 63 but from a massive NH in his late 60s. Sister also from colon cancer at age 55. She was diagnosed around age 40. Living arrangement: At home Living Situation: With spouse/s.o. - POLST Patient has POLST: No POLST Status: Full Code Meds/Allgy - Home Medications Home Medications: Ambulatory Orders Medication Instructions Recorded Confirmed Acetaminophen [Pain Relief] 1,000 mg PO TID 01/29/13 07/30/20 Atorvastatin [Lipitor] 20 mg PO DAILY 12/30/13 07/30/20 Metoprolol Succinate 25 mg PO DAILY 07/02/14 07/30/20 Pantoprazole [Protonix] 40 mg PO DAILY 07/02/14 07/30/20 Doxazosin [Cardura] 8 mg PO DAILY 04/02/15 07/30/20 Chlorthalidone 25 mg PO DAILY 03/27/19 07/30/20 Celecoxib [Celebrex] 200 mg PO BID 07/21/20 07/30/20 Montelukast [Singulair] 10 mg PO QPM 07/21/20 07/30/20 - Allergies Allergies/Adverse Reactions: Allergies Allergy/AdvReac Type Severity Reaction Status Date / Time No Known Drug Allergies Allergy Verified 06/25/15 13:32 Review of Systems - Constitutional Constitutional: denies: Fatigue, Fever, Chills, Weakness - Eyes Eyes: denies: Pain, Vision loss - Ears, Nose & Throat Ears, Nose & Throat: denies: Ear pain, Sore throat - Cardiovascular Cariovascular: denies: Chest pain, Edema, Lightheadedness, Syncope, Exertional dyspnea - Respiratory Respiratory: denies: Cough, Wheezing, Snoring, SOB at rest, SOB with exertion - Gastrointestinal Gastrointestinal: denies: Abdominal pain, Abdominal distention, Constipation, Nausea, Vomiting - Genitourinary Genitourinary: denies: Dysuria, Frequency, Urgency, Hematuria - Musculoskeletal Musculoskeletal: denies: Muscle pain, Back pain, Muscle aches - Integumentary Integumentary: denies: Rash, Pruritis, Lesions - Neurological Neurological: denies: General weakness, Focal weakness, Headache, Dizziness - Psychiatric Psychiatric: denies: Depression, Anxiety - Endocrine Endocrine: denies: Polyuria, Polydypsia - Hematologic/Lymphatic Hematologic/Lymphatic: denies: Anemia, Bruising Exam - Vital Signs Vital Signs: Vital Signs x48h Temp Pulse Resp BP Pulse Ox 07/30/20 11:47 53 L 17 162/71 H 98 07/30/20 11:32 51 L 17 149/79 H 99 07/30/20 11:17 59 L 18 144/67 H 97 07/30/20 11:02 36.3 C L 53 L 18 131/65 H 97 07/30/20 10:52 37 C 55 L 16 130/71 14 L 07/30/20 10:46 37 C 52 L 16 128/65 97 07/30/20 10:40 37 C 53 L 16 128/71 98 07/30/20 10:34 37 C 52 L 16 115/73 131 H 07/30/20 10:29 37 C 57 L 16 126/66 98 07/30/20 10:26 37 C 51 L 16 126/66 97 07/30/20 10:19 37 C 57 L 16 128/63 97 07/30/20 10:13 37 C 56 L 56 H 123/68 98 07/30/20 06:36 36 C L 63 18 154/82 H 97 - Physical Exam General Appearance: positive: No acute distress, Alert Eyes Bilateral: positive: PERRL, EOMI ENT: positive: No signs of dehydration Neck: positive: No JVD, Trachea midline Respiratory: positive: Chest non-tender, No respiratory distress, Breath sounds nml. negative: Wheezes, Rales, Rhonchi Cardiovascular: positive: Regular rate & rhythm, No murmur Abdomen: positive: Non-tender, No organomegaly, Nml bowel sounds, No distention. negative: Guarding, Rebound Back: positive: Nml inspection Skin: positive: Color nml, No rash, Warm, Dry. negative: Cyanosis, Diaphoresis Extremities: positive: Non-tender, Full ROM, Nml appearance, No pedal edema Neurologic/Psychiatric: positive: Oriented x3, Mood/affect nml Conclusion/Plan - Diagnosis Diagnosis: Left Hip Arthritis. Hx of Coronary Artery Disease. Hypertension. Hyperlipidemia. GERD - Plan Plan: Left Hip Arthritis: Status post left total hip arthroplasty. Managed by orthopedic (primary) team. Pain management as needed with Celebrex, Tylenol and/or tramadol. PT/OT to evaluate and treat. Anticipated discharge home tomorrow. Hx of Coronary Artery Disease: Patient is on metoprolol, atorvastatin, baby aspirin. These have been resumed. Hypertension: On doxazosin, metoprolol and hydrochlorothiazide. Hyperlipidemia: On atorvastatin GERD: On protonix
[2020-07-30 13:33] LABS: CALCIUM 9.2 mg/dL (8.5-10.3); CREATININE 1.9 mg/dL (0.6-1.2); POTASSIUM 4.3 mmol/L (3.5-5.0)
[2020-07-30] MEDS: ceFAZolin 2 GM/50 ML 2 GM/50 ML BAG IV SCH ×2 (13:40→20:53)
[2020-07-30 13:53] LABS: BASOPHILS % (AUTO) 0.3 %; EOSINOPHILS % (AUTO) 0.3 %; HCT - HEMATOCRIT 38.6 % (42.0-52.0); HGB - HEMOGLOBIN 12.3 g/dL (14.0-18.0); LYMPHOCYTES # (AUTO) 0.7 10^3/uL (1.5-3.5); MEAN CORPUSCULAR HEMOGLOBIN 28.5 pg (27.0-31.0); MEAN CORPUSCULAR HGB CONC 31.9 g/dL (32.0-36.0); MEAN CORPUSCULAR VOLUME 89.6 fL (80.0-94.0); MEAN PLATELET VOLUME 9.1 fL (7.4-11.4); MONOCYTES # (AUTO) 0.2 10^3/uL (0.0-1.0); MONOCYTES % (AUTO) 1.8 %; NEUTROPHILS # (AUTO) 9.1 10^3/uL (1.5-6.6); PLT - PLATELET COUNT 151 10^3/uL (130-450); RED BLOOD COUNT 4.31 10^6/uL (4.70-6.10); RED CELL DISTRIBUTION WIDTH 13.4 % (12.0-15.0); WHITE BLOOD COUNT 10.1 x10^3/uL (4.8-10.8)
[2020-07-30] MEDS: SODIUM CHLORIDE 0.9% 1,000 ML IV SCH (14:35)
[2020-07-30] MEDS: traMADol 50 MG TABLET PO PRN ×3 (14:42→22:48)
[2020-07-30] MEDS: oxyCODONE 5 MG TABLET PO PRN ×2 (16:02→21:36)
[2020-07-30] MEDS: SODIUM CHLORIDE FLUSH 0.9% 10 ML SYRINGE IVP SCH ×2 (16:29→23:47)
[2020-07-30] MEDS: INSULIN ASPART 300 UNIT/3 ML PEN SUBQ SCH ×2 (16:51→21:01)
[2020-07-30 20:14] LABS: ESTIMATED AVERAGE GLUCOSE 120 mg/dL (70-100); HEMOGLOBIN A1c% 5.8 % (4.27-6.07)
[2020-07-30] MEDS: ASPIRIN EC 81 MG TABLET PO SCH (20:52)
[2020-07-30] MEDS: ethyl alcohoL 62% SWAB AMPULE NAS SCH (20:53)
[2020-07-30] MEDS ORDERED: DOXAZOSIN 4 MG TABLET PO SCH (21:00)
[2020-07-30] MEDS ORDERED: NON FORMULARY MED (Atorvastatin [Lipitor] 20 MG Tablet) PO SCH (21:00)
[2020-07-30] MEDS ORDERED: CELECOXIB 100 MG CAPSULE PO SCH (21:00)
[2020-07-30] MEDS ORDERED: ATORVASTATIN 10 MG TABLET PO SCH (21:00)
[2020-07-30] MEDS ORDERED: PANTOPRAZOLE 40 MG TABLET PO SCH (21:00)
[2020-07-31] MEDS: SODIUM CHLORIDE 0.9% 1,000 ML IV SCH ×2 (00:58→10:47)
[2020-07-31] MEDS: traMADol 50 MG TABLET PO PRN ×2 (02:34→06:57)
[2020-07-31] MEDS: oxyCODONE 5 MG TABLET PO PRN ×2 (03:40→14:18)
[2020-07-31 05:30] LABS: BASOPHILS % (AUTO) 0.1 %; EOSINOPHILS # (AUTO) 0.1 10^3/uL (0.0-0.7); EOSINOPHILS % (AUTO) 0.7 %; HGB - HEMOGLOBIN 11.5 g/dL (14.0-18.0); LYMPHOCYTES # (AUTO) 1.3 10^3/uL (1.5-3.5); LYMPHOCYTES % (AUTO) 12.6 %; MEAN CORPUSCULAR HEMOGLOBIN 28.7 pg (27.0-31.0); MEAN CORPUSCULAR HGB CONC 32.9 g/dL (32.0-36.0); MEAN CORPUSCULAR VOLUME 87.3 fL (80.0-94.0); MEAN PLATELET VOLUME 9.3 fL (7.4-11.4); MONOCYTES % (AUTO) 9.9 %; NEUTROPHILS # (AUTO) 7.6 10^3/uL (1.5-6.6); NEUTROPHILS % (AUTO) 76.3 %; PLT - PLATELET COUNT 143 10^3/uL (130-450); RED BLOOD COUNT 4.01 10^6/uL (4.70-6.10); RED CELL DISTRIBUTION WIDTH 13.2 % (12.0-15.0)
[2020-07-31 05:36] LABS: CALCIUM 8.1 mg/dL (8.5-10.3); CREATININE 1.6 mg/dL (0.6-1.2)
[2020-07-31] MEDS: ACETAMINOPHEN 500 MG TABLET PO SCH ×2 (05:53→12:21)
[2020-07-31] MEDS: INSULIN ASPART 300 UNIT/3 ML PEN SUBQ SCH ×2 (07:32→11:22)
--- NOTE | 2020-07-31 07:36 | PROVIDER PROGRESS NOTE ---
Subjective - General Procedure Date: 07/30/20 Post Op Days: 1 - Review of Systems Wound/Incisions: positive: Dressing dry and intact, No drainage General: positive: No symptoms Gastrointestinal: positive: Nausea Musculoskeletal: positive: Joint pain Psychiatric: positive: No symptoms Objective - Patient Data Vital Signs: Vital Signs x48h Temp Pulse Resp BP Pulse Ox 07/31/20 07:31 36.3 C L 67 18 130/56 L 97 07/31/20 06:00 36.3 C L 66 18 129/57 L 94 07/31/20 00:00 36.4 C L 68 18 145/60 H 97 Weight: Weight 07/29/20 07/30/20 07/31/20 23:59 23:59 23:59 Weight (kg) 86 kg Intake & Output: Intake and Output Totals x24h 07/29/20 07/30/20 07/31/20 23:59 23:59 23:59 Intake Total 2320 661.667 Output Total 2450 850 Balance -130 -188.333 - Lab Results Lab Results: 07/31/20 05:10 07/31/20 05:10 Other Lab Results: Lab Results x24hrs 07/31/20 07/31/20 07/31/20 Range/Units 07:30 05:10 05:10 WBC 10.0 (4.8-10.8) x10^3/uL RBC 4.01 L (4.70-6.10) 10^6/uL Hgb 11.5 L (14.0-18.0) g/dL Hct 35.0 L (42.0-52.0) % MCV 87.3 (80.0-94.0) fL MCH 28.7 (27.0-31.0) pg MCHC 32.9 (32.0-36.0) g/dL RDW 13.2 (12.0-15.0) % Plt Count 143 (130-450) 10^3/uL MPV 9.3 (7.4-11.4) fL Neut # (Auto) 7.6 H (1.5-6.6) 10^3/uL Lymph # (Auto) 1.3 L (1.5-3.5) 10^3/uL [place] # (Auto) 1.0 (0.0-1.0) 10^3/uL Eos # (Auto) 0.1 (0.0-0.7) 10^3/uL Baso # (Auto) 0.0 (0.0-0.1) 10^3/uL Absolute Nucleated RBC 0.00 x10^3/uL Nucleated RBC % 0.0 /100WBC Sodium 135 (135-145) mmol/L Potassium 4.0 (3.5-5.0) mmol/L Chloride 104 (101-111) mmol/L Carbon Dioxide 27 (21-32) mmol/L Anion Gap 4.0 L (6-13) BUN 31 H (6-20) mg/dL Creatinine 1.6 H (0.6-1.2) mg/dL Estimated GFR (MDRD) 41 L (>89) Glucose 130 H (70-100) mg/dL POC Whole Bld Glucose 135 H (70 - 100) mg/dL Estimat Average Glucose (70-100) mg/dL Hemoglobin A1c % (4.27-6.07) % Calcium 8.1 L (8.5-10.3) mg/dL 07/30/20 07/30/20 07/30/20 Range/Units 20:57 16:39 13:48 WBC (4.8-10.8) x10^3/uL RBC (4.70-6.10) 10^6/uL Hgb (14.0-18.0) g/dL Hct (42.0-52.0) % MCV (80.0-94.0) fL MCH (27.0-31.0) pg MCHC (32.0-36.0) g/dL RDW (12.0-15.0) % Plt Count (130-450) 10^3/uL MPV (7.4-11.4) fL Neut # (Auto) (1.5-6.6) 10^3/uL Lymph # (Auto) (1.5-3.5) 10^3/uL [place] # (Auto) (0.0-1.0) 10^3/uL Eos # (Auto) (0.0-0.7) 10^3/uL Baso # (Auto) (0.0-0.1) 10^3/uL Absolute Nucleated RBC x10^3/uL Nucleated RBC % /100WBC Sodium (135-145) mmol/L Potassium (3.5-5.0) mmol/L Chloride (101-111) mmol/L Carbon Dioxide (21-32) mmol/L Anion Gap (6-13) BUN (6-20) mg/dL Creatinine (0.6-1.2) mg/dL Estimated GFR (MDRD) (>89) Glucose (70-100) mg/dL POC Whole Bld Glucose 159 H 161 H (70 - 100) mg/dL Estimat Average Glucose 120 H (70-100) mg/dL Hemoglobin A1c % 5.8 (4.27-6.07) % Calcium (8.5-10.3) mg/dL 07/30/20 07/30/20 Range/Units 13:48 13:14 WBC 10.1 (4.8-10.8) x10^3/uL RBC 4.31 L (4.70-6.10) 10^6/uL Hgb 12.3 L (14.0-18.0) g/dL Hct 38.6 L (42.0-52.0) % MCV 89.6 (80.0-94.0) fL MCH 28.5 (27.0-31.0) pg MCHC 31.9 L (32.0-36.0) g/dL RDW 13.4 (12.0-15.0) % Plt Count 151 (130-450) 10^3/uL MPV 9.1 (7.4-11.4) fL Neut # (Auto) 9.1 H (1.5-6.6) 10^3/uL Lymph # (Auto) 0.7 L (1.5-3.5) 10^3/uL [place] # (Auto) 0.2 (0.0-1.0) 10^3/uL Eos # (Auto) 0.0 (0.0-0.7) 10^3/uL Baso # (Auto) 0.0 (0.0-0.1) 10^3/uL Absolute Nucleated RBC 0.00 x10^3/uL Nucleated RBC % 0.0 /100WBC Sodium 138 (135-145) mmol/L Potassium 4.3 (3.5-5.0) mmol/L Chloride 103 (101-111) mmol/L Carbon Dioxide 24 (21-32) mmol/L Anion Gap 11.0 (6-13) BUN 40 H (6-20) mg/dL Creatinine 1.9 H (0.6-1.2) mg/dL Estimated GFR (MDRD) 34 L (>89) Glucose 175 H (70-100) mg/dL POC Whole Bld Glucose (70 - 100) mg/dL Estimat Average Glucose (70-100) mg/dL Hemoglobin A1c % (4.27-6.07) % Calcium 9.2 (8.5-10.3) mg/dL - Current Medications Current Medications: Current Medications Generic Name Dose Route Start Last Admin Trade Name Freq PRN Reason Stop Dose Admin Acetaminophen 1,000 mg 07/30/20 12:00 07/31/20 05:53 Acetaminophen 500 Mg Tablet PO 1,000 mg Q6HR DODIE Administration Alcohol 1 amp 07/30/20 21:00 07/30/20 20:53 Ethyl Alcohol 62% Swab Ampule LEAH 1 amp BID DODIE Administration Aspirin 81 mg 07/30/20 21:00 07/30/20 20:52 Aspirin Ec 81 Mg Tablet PO 81 mg BID DODIE Administration Atorvastatin Calcium 20 mg 07/30/20 21:00 07/30/20 20:53 Atorvastatin 10 Mg Tablet PO 20 mg QPM DODIE Administration Doxazosin Mesylate 8 mg 07/30/20 21:00 07/30/20 20:53 Doxazosin 4 Mg Tablet PO 8 mg QPM DODIE Administration Sodium Chloride 1,000 mls @ 100 mls/hr 07/30/20 14:00 07/31/20 00:58 Normal Saline 0.9% IV 100 mls/hr .Q10H DODIE Administration Insulin Aspart 1 - 5 unit 07/30/20 17:00 07/31/20 07:32 Insulin Aspart 300 Unit/3 Ml Pen SUBQ Not Given 0800,1200,1700,2100 [facility] Protocol Ondansetron HCl 4 mg 07/30/20 10:36 07/31/20 05:54 Ondansetron 4 Mg/2 Ml Vial IVP 4 mg Q6HR PRN Administration Nausea / Vomiting Oxycodone HCl 5 mg 07/30/20 12:50 07/31/20 03:40 Oxycodone 5 Mg Tablet PO 5 mg Q6HR PRN Administration PAIN Pantoprazole Sodium 40 mg 06/02/21 21:00 07/30/20 20:53 Pantoprazole 40 Mg Tablet PO 40 mg QPM DODIE Administration Sodium Chloride 10 ml 07/30/20 17:00 07/30/20 23:47 Sodium Chloride Flush 0.9% 10 Ml Syringe IVP 10 ml 0100,0900,1700 DODIE Administration Sodium Chloride 10 ml 07/30/20 10:36 07/30/20 13:40 Sodium Chloride Flush 0.9% 10 Ml Syringe IVP 10 ml PRN PRN Administration NEEDED PER PROVIDER ORDERS Tramadol HCl 50 mg 07/30/20 12:50 07/31/20 06:57 Tramadol 50 Mg Tablet PO 50 mg Q4HR PRN Administration PAIN - Physical Exam Wound/Incisions: positive: Healing well, Dressing dry and intact, No drainage General Appearance: positive: No acute distress Respiratory: positive: No respiratory distress Cardiovascular: positive: Regular rate & rhythm Skin: positive: Warm, Dry Neurologic/Psychiatric: positive: Oriented x3, Motor nml, Sensation nml Impression/Plan - Problem List Problem List: He is postop day 1, status post left total hip arthroplasty. His pain is under good control, mild nausea; can participate in occupational and physical therapy. He had one session yesterday. He should be able to be safe discharge today pending further evaluation by her hospitalist, physical and occupational therapist. His discharge medications have been completed prior to surgery. He is to use aspirin 81 mg twice daily for deep venous thrombosis prophylaxis. He is to ambulate with a walker weightbearing as tolerated on left leg. He has a return appointment to our office for a postoperative visit next Tuesday and [place]. He may shower and leave the dressing in place to his left hip incision.
--- NOTE | 2020-07-31 07:43 | Discharge Plan ---
Discharge Plan Problem Reviewed?: Yes Disposition: Home, Self Care Condition: Good Diet: Regular Activity Restrictions: Wt Bearing as Tolerated Shower Restrictions: No Assistance Devices: Walker Weight Bearing: Full Weight No Smoking: If you smoke, Please STOP! Call for help.
[2020-07-31] MEDS ORDERED: METOPROLOL SUCCINATE 25 MG TABLET PO SCH (09:00)
[2020-07-31] MEDS: MAG HYDROX/AL HYDROX/SIMETH 30 ML UDC PO PRN ×2 (09:00→12:24)
[2020-07-31] MEDS ORDERED: DOXAZOSIN 4 MG TABLET PO SCH (09:00)
[2020-07-31] MEDS ORDERED: PANTOPRAZOLE 40 MG TABLET PO SCH (09:00)
[2020-07-31] MEDS ORDERED: hydroCHLOROthiazide 12.5 MG CAPSULE PO SCH (09:00)
[2020-07-31] MEDS: ethyl alcohoL 62% SWAB AMPULE NAS SCH (10:22)
[2020-07-31] MEDS: ASPIRIN EC 81 MG TABLET PO SCH (10:22)
[2020-07-31] MEDS: SODIUM CHLORIDE FLUSH 0.9% 10 ML SYRINGE IVP SCH (10:23)
--- NOTE | 2020-07-31 10:30 | PROVIDER PROGRESS NOTE ---
Assessment/Plan - Problem List (1) Arthritis of left hip Assessment/Plan: Status post left total hip arthroplasty. Postop day #1. This is managed by the orthopedic team. Patient to discharge today once cleared by physical therapy. Pain management as needed. Follow-up in the outpatient setting with physical therapy and orthopedics. (2) History of coronary artery disease Assessment/Plan: Patient is on metoprolol, atorvastatin, baby aspirin. (3) Hypertension Assessment/Plan: Metoprolol, hydrochlorothiazide and doxazosin. (4) Hyperlipidemia Assessment/Plan: On atorvastatin (5) GERD (gastroesophageal reflux disease) Assessment/Plan: On famotidine (6) Acute kidney injury Assessment/Plan: Patient's creatinine improved from 1.9-1.6 today. Patient's elevated creatinine is likely due to prolonged NSAID/Celebrex use and possibly volume depletion. Patient has been advised to discontinue NSAID use. We will continue IV hydration until discharge. Patient was advised to follow-up with his primary care physician for repeat basic metabolic panel in 7 to 10 days. - Current Meds Current Meds: Current Medications Generic Name Dose Route Start Last Admin Trade Name Freq PRN Reason Stop Dose Admin Acetaminophen 1,000 mg 07/30/20 12:00 07/31/20 05:53 Acetaminophen 500 Mg Tablet PO 1,000 mg Q6HR DODIE Administration Al Hydroxide/Mg Hydroxide 30 ml 07/31/20 08:00 07/31/20 09:00 Mag Hydrox/Al Hydrox/Simeth 30 Ml Udc PO 30 ml Q4HR PRN Administration INDIGESTION Alcohol 1 amp 07/30/20 21:00 07/31/20 10:22 Ethyl Alcohol 62% Swab Ampule LEAH 1 amp BID DODIE Administration Aspirin 81 mg 07/30/20 21:00 07/31/20 10:22 Aspirin Ec 81 Mg Tablet PO 81 mg BID DODIE Administration Atorvastatin Calcium 20 mg 07/30/20 21:00 07/30/20 20:53 Atorvastatin 10 Mg Tablet PO 20 mg QPM DODIE Administration Doxazosin Mesylate 8 mg 07/30/20 21:00 07/30/20 20:53 Doxazosin 4 Mg Tablet PO 8 mg QPM DODIE Administration Hydrochlorothiazide 37.5 mg 07/31/20 09:00 07/31/20 10:23 Hydrochlorothiazide 12.5 Mg Capsule PO Not Given DAILY DODIE Sodium Chloride 1,000 mls @ 100 mls/hr 07/30/20 14:00 07/31/20 00:58 Normal Saline 0.9% IV 100 mls/hr .Q10H DODIE Administration Insulin Aspart 1 - 5 unit 07/30/20 17:00 07/31/20 07:32 Insulin Aspart 300 Unit/3 Ml Pen SUBQ Not Given 0800,1200,1700,2100 [facility] Protocol Metoprolol Succinate 25 mg 07/31/20 09:00 07/31/20 10:23 Metoprolol Succinate 25 Mg Tablet PO Not Given DAILY DODIE Ondansetron HCl 4 mg 07/30/20 10:36 07/31/20 05:54 Ondansetron 4 Mg/2 Ml Vial IVP 4 mg Q6HR PRN Administration Nausea / Vomiting Oxycodone HCl 5 mg 07/30/20 12:50 07/31/20 03:40 Oxycodone 5 Mg Tablet PO 5 mg Q6HR PRN Administration PAIN Pantoprazole Sodium 40 mg 07/30/20 21:00 07/30/20 20:53 Pantoprazole 40 Mg Tablet PO 40 mg QPM DODIE Administration Sodium Chloride 10 ml 07/30/20 17:00 07/31/20 10:23 Sodium Chloride Flush 0.9% 10 Ml Syringe IVP Not Given 0100,0900,1700 DODIE Sodium Chloride 10 ml 07/30/20 10:36 07/30/20 13:40 Sodium Chloride Flush 0.9% 10 Ml Syringe IVP 10 ml PRN PRN Administration NEEDED PER PROVIDER ORDERS Tramadol HCl 50 mg 07/30/20 12:50 07/31/20 06:57 Tramadol 50 Mg Tablet PO 50 mg Q4HR PRN Administration PAIN - Lab Result Fish Bone Diagrams: 07/31/20 05:10 07/31/20 05:10 - Additional Planning My Orders: My Active Orders 07/30/20 12:50 oxyCODONE [Roxicodone] 5 mg PO Q6HR PRN traMADol [Ultram] 50 mg PO Q4HR PRN 07/30/20 13:41 Blood Glucose Checks - Eating [RC] 0800,1200,1700,2100 Initiate Hypoglycemia Protocol [RC] .protocol 07/30/20 14:00 Sodium Chloride 0.9% [Normal Saline 0.9%] 1,000 ml IV 100 mls/hr 07/30/20 17:00 Insulin Aspart [NovoLOG] 1 - 5 unit SUBQ 0800,1200,1700,2100 07/30/20 21:00 Atorvastatin [Lipitor] 20 mg PO QPM Doxazosin [Cardura] 8 mg PO QPM Pantoprazole [Protonix] 40 mg PO QPM 07/31/20 08:00 Mag Hydrox/Al Hydrox/Simeth [Mylanta Plus] 30 ml PO Q4HR PRN 07/31/20 09:00 Metoprolol Succinate [Toprol Xl] 25 mg PO DAILY hydroCHLOROthiazide [Hydrodiuril] 37.5 mg PO DAILY Subjective - Subjective Patient Reports: Other (Patient complaint of stomach upset this morning. He denied vomiting or diarrhea. However he declined breakfast. Denied chest pain, dyspnea, fever or chills.) Objective Vital Signs: Vital Signs - 24 hr 07/30/20 07/30/20 07/30/20 10:29 10:34 10:40 Temperature 37 C 37 C 37 C Heart Rate 57 L 52 L 53 L Heart Rate [ Activity] Heart Rate [ Sitting] Heart Rate [ Supine] Respiratory 16 16 16 Rate Blood Pressure 126/66 115/73 128/71 Blood Pressure [Activity] Blood Pressure [Sitting] Blood Pressure [Supine] O2 Saturation 98 131 H 98 07/30/20 07/30/20 07/30/20 10:46 10:52 11:02 Temperature 37 C 37 C 36.3 C L Heart Rate 52 L 55 L 53 L Heart Rate [ Activity] Heart Rate [ Sitting] Heart Rate [ Supine] Respiratory 16 16 18 Rate Blood Pressure 128/65 130/71 131/65 H Blood Pressure [Activity] Blood Pressure [Sitting] Blood Pressure [Supine] O2 Saturation 97 14 L 97 07/30/20 07/30/20 07/30/20 11:17 11:32 11:47 Temperature Heart Rate 59 L 51 L 53 L Heart Rate [ Activity] Heart Rate [ Sitting] Heart Rate [ Supine] Respiratory 18 17 17 Rate Blood Pressure 144/67 H 149/79 H 162/71 H Blood Pressure [Activity] Blood Pressure [Sitting] Blood Pressure [Supine] O2 Saturation 97 99 98 07/30/20 07/30/20 07/30/20 12:17 12:47 13:47 Temperature 36.2 C L Heart Rate 62 61 63 Heart Rate [ Activity] Heart Rate [ Sitting] Heart Rate [ Supine] Respiratory 16 16 16 Rate Blood Pressure 168/72 H 159/70 H 152/68 H Blood Pressure [Activity] Blood Pressure [Sitting] Blood Pressure [Supine] O2 Saturation 98 98 100 07/30/20 07/30/20 07/30/20 14:47 15:00 15:47 Temperature 36.5 C Heart Rate 61 60 Heart Rate [ 60 Activity] Heart Rate [ 63 Sitting] Heart Rate [ 60 Supine] Respiratory 18 18 Rate Blood Pressure 163/65 H 167/66 H Blood Pressure 135/65 H [Activity] Blood Pressure 102/66 [Sitting] Blood Pressure 163/65 H [Supine] O2 Saturation 100 98 07/30/20 07/30/20 07/30/20 16:02 16:41 20:51 Temperature 36.5 C 36.8 C Heart Rate 69 66 71 Heart Rate [ Activity] Heart Rate [ Sitting] Heart Rate [ Supine] Respiratory 19 18 19 Rate Blood Pressure 136/79 H 136/79 H 161/70 H Blood Pressure [Activity] Blood Pressure [Sitting] Blood Pressure [Supine] O2 Saturation 98 99 95 07/30/20 07/31/20 07/31/20 22:50 00:00 06:00 Temperature 36.4 C L 36.3 C L Heart Rate 68 66 Heart Rate [ Activity] Heart Rate [ Sitting] Heart Rate [ Supine] Respiratory 18 18 Rate Blood Pressure 127/63 145/60 H 129/57 L Blood Pressure [Activity] Blood Pressure [Sitting] Blood Pressure [Supine] O2 Saturation 97 94 07/31/20 07/31/20 07/31/20 07:31 09:50 10:00 Temperature 36.3 C L 37.5 C Heart Rate 67 72 64 Heart Rate [ Activity] Heart Rate [ Sitting] Heart Rate [ Supine] Respiratory 18 18 16 Rate Blood Pressure 130/56 L 106/51 L 119/44 L Blood Pressure [Activity] Blood Pressure [Sitting] Blood Pressure [Supine] O2 Saturation 97 98 93 Oxygen O2 Source Room air I&O (Last 24 Hrs): Intake and Output Totals x24h 07/29/20 07/30/20 07/31/20 23:59 23:59 23:59 Intake Total 2320 861.667 Output Total 2450 1125 Balance -130 -263.333 General: Alert, Oriented x3, No acute distress HEENT: PERRLA, EOMI Neck: Supple, No JVD Neuro: Alert, Oriented Times 3 Cardiovascular: Regular rate Respiratory: Chest non-tender, No respiratory distress, Breath sounds nml Abdomen: Soft, No tenderness Extremities: No clubbing, No cyanosis, No edema Skin: No rashes, No breakdown - Results Results: Laboratory Results WBC 10.0 x10^3/uL (4.8-10.8) 07/31/20 05:10 RBC 4.01 10^6/uL (4.70-6.10) L 07/31/20 05:10 Hgb 11.5 g/dL (14.0-18.0) L 07/31/20 05:10 Hct 35.0 % (42.0-52.0) L 07/31/20 05:10 MCV 87.3 fL (80.0-94.0) 07/31/20 05:10 MCH 28.7 pg (27.0-31.0) 07/31/20 05:10 MCHC 32.9 g/dL (32.0-36.0) 07/31/20 05:10 RDW 13.2 % (12.0-15.0) 07/31/20 05:10 Plt Count 143 10^3/uL (130-450) 07/31/20 05:10 MPV 9.3 fL (7.4-11.4) 07/31/20 05:10 Neut # (Auto) 7.6 10^3/uL (1.5-6.6) H 07/31/20 05:10 Lymph # (Auto) 1.3 10^3/uL (1.5-3.5) L 07/31/20 05:10 [place] # (Auto) 1.0 10^3/uL (0.0-1.0) 07/31/20 05:10 Eos # (Auto) 0.1 10^3/uL (0.0-0.7) 07/31/20 05:10 Baso # (Auto) 0.0 10^3/uL (0.0-0.1) 07/31/20 05:10 Absolute Nucleated RBC 0.00 x10^3/uL 07/31/20 05:10 Nucleated RBC % 0.0 /100WBC 07/31/20 05:10 Sodium 135 mmol/L (135-145) 07/31/20 05:10 Potassium 4.0 mmol/L (3.5-5.0) 07/31/20 05:10 Chloride 104 mmol/L (101-111) 07/31/20 05:10 Carbon Dioxide 27 mmol/L (21-32) 07/31/20 05:10 Anion Gap 4.0 (6-13) L 07/31/20 05:10 BUN 31 mg/dL (6-20) H 07/31/20 05:10 Creatinine 1.6 mg/dL (0.6-1.2) H 07/31/20 05:10 Estimated GFR (MDRD) 41 (>89) L 07/31/20 05:10 Glucose 130 mg/dL (70-100) H 07/31/20 05:10 POC Whole Bld Glucose 135 mg/dL (70 - 100) H 07/31/20 07:30 Estimat Average Glucose 120 mg/dL (70-100) H 07/30/20 13:48 Hemoglobin A1c % 5.8 % (4.27-6.07) 07/30/20 13:48 Calcium 8.1 mg/dL (8.5-10.3) L 07/31/20 05:10 - Procedures Procedures: Procedures EXCISION OF ASCENDING COLON, ENDO (03/28/19) EXCISION OF ASCENDING COLON, ENDO, DIAGN (03/20/15) EXCISION OF CECUM, ENDO, DIAGN (03/20/15) EXCISION OF CECUM, PERCUTANEOUS ENDOSCOPIC APPROACH (04/11/15) EXCISION OF DUODENUM, ENDO, DIAGN (03/28/19) EXCISION OF ESOPHAGOGASTRIC JUNCTION, ENDO (03/28/19) EXCISION OF LEFT LARGE INTESTINE, ENDO, DIAGN (03/28/19) EXCISION OF LOWER ESOPHAGUS, ENDO, DIAGN (06/26/15) EXCISION OF RECTUM, ENDO (03/20/15) EXCISION OF RIGHT LARGE INTESTINE, ENDO, DIAGN (03/28/19) EXCISION OF SIGMOID COLON, ENDO (03/20/15) EXCISION OF STOMACH, ENDO (03/28/19) EXCISION OF STOMACH, ENDO, DIAGN (06/26/15) EXCISION OF TRANSVERSE COLON, ENDO (03/28/19) INTRODUCTION OF OTH THERAP SUBST INTO LOW GI, ENDO (03/20/15) RESECTION OF APPENDIX, PERCUTANEOUS ENDOSCOPIC APPROACH (04/11/15) TU DESTRUC BLADD LES NEC (01/29/13) URETH STRICTURE RELEASE (01/29/13) ABX Reporting Has patient been on IV antibiotics over the past 48 hours?: No
[2020-07-31 16:09] VITALS: BP 115/53
== END 2020-07-31 16:00 | disposition home or self-care (01) ==
LOC: SDS 06:28 → MS2 11:40 → SDS 07-31 16:00
PROVIDERS: ATTEND Orthopaedic Surgery
PROC: 0SRB01A Replacement of Left Hip Joint with Metal Synthetic Substitute, Uncemented, Open Approach (ICD-10-PCS; principal; 2020-07-30 07:30)
DX: M16.12 Unilateral primary osteoarthritis, left hip (principal); I25.10 Atherosclerotic heart disease of native coronary artery without angina pectoris; E78.5 Hyperlipidemia, unspecified; K21.9 Gastro-esophageal reflux disease without esophagitis; N17.9 Acute kidney failure, unspecified; Z95.5 Presence of coronary angioplasty implant and graft; I12.9 Hypertensive chronic kidney disease with stage 1 through stage 4 chronic kidney disease, or unspecified chronic kidney disease; N18.30 Chronic kidney disease, stage 3 unspecified; Z87.891 Personal history of nicotine dependence; J45.909 Unspecified asthma, uncomplicated; N40.0 Benign prostatic hyperplasia without lower urinary tract symptoms; Z85.46 Personal history of malignant neoplasm of prostate; E66.3 Overweight; Z68.27 Body mass index [BMI] 27.0-27.9, adult
CPT/HCPCS: 27130; 36415; 72170; 80048; 83036; 85025; 97110; 97116; 97162; 97165; 97530; A9270; J0690; J3370; J7120

== ENCOUNTER 2020-08-29 20:34 | Emergency (ER) | payer MEDICARE ==
[2020-08-29 21:04] LABS: BASOPHILS % (AUTO) 0.4 %; EOSINOPHILS # (AUTO) 0.1 10^3/uL (0.0-0.7); EOSINOPHILS % (AUTO) 0.7 %; HCT - HEMATOCRIT 35.8 % (42.0-52.0); HGB - HEMOGLOBIN 11.5 g/dL (14.0-18.0); LYMPHOCYTES # (AUTO) 0.6 10^3/uL (1.5-3.5); LYMPHOCYTES % (AUTO) 7.7 %; MEAN CORPUSCULAR HGB CONC 32.1 g/dL (32.0-36.0); MEAN CORPUSCULAR VOLUME 87.3 fL (80.0-94.0); MEAN PLATELET VOLUME 9.1 fL (7.4-11.4); MONOCYTES # (AUTO) 0.6 10^3/uL (0.0-1.0); MONOCYTES % (AUTO) 8.4 %; NEUTROPHILS % (AUTO) 82.4 %; PLT - PLATELET COUNT 161 10^3/uL (130-450); RED CELL DISTRIBUTION WIDTH 13.9 % (12.0-15.0); WHITE BLOOD COUNT 7.3 x10^3/uL (4.8-10.8)
[2020-08-29 21:18] LABS: ALBUMIN 3.8 g/dL (3.2-5.5); ALBUMIN/GLOBULIN RATIO 1.2 (1.0-2.2); BILIRUBIN,TOTAL 0.8 mg/dL (0.2-1.0); CALCIUM 8.6 mg/dL (8.5-10.3); CREATININE 2.4 mg/dL (0.6-1.2); POTASSIUM 4.2 mmol/L (3.5-5.0); TOTAL PROTEIN 6.9 g/dL (6.7-8.2)
--- NOTE | 2020-08-29 21:20 | ED Physician Documentation ---
PD HPI SYNCOPE - Stated complaint Stated Complaint: BP UNSTABLE/CHILLS/SURGERY A MONTH AGO - Chief complaint Chief Complaint: General - History obtained from History obtained from: Patient - History of Present Illness Timing - onset: How many days ago (patient feeling weak and lightheaded with lower BP for few days. No syncope, just feeling of weakness, more with change position.) Preceding symptoms: Nausea / vomiting (nausea without vomiting nor diarrhea.), Light headed, Generalized weakness. No: Headache, Dyspnea, Abdominal pain Associated symptoms: Other (fever). No: Headache, Chest pain, Dyspnea, Abdominal pain Contributing factors: No: Recent med change, Decreased PO intake Similar symptoms before: Has not had sx before Recently seen: Not recently seen Review of Systems Constitutional: reports: Fever, Chills, Myalgias Nose: denies: Rhinorrhea / runny nose, Congestion Throat: denies: Sore throat Cardiac: denies: Chest pain / pressure Respiratory: denies: Dyspnea, Cough GI: reports: Nausea. denies: Abdominal Pain, Vomiting, Diarrhea Skin: denies: Rash, Lesions Neurologic: denies: Altered mental status, Headache PD PAST MEDICAL HISTORY - Past Medical History Past Medical History: Yes Cardiovascular: Hypertension, High cholesterol, Coronary artery disease, Atrial fibrillation Respiratory: Asthma Neuro: Fainting Endocrine/Autoimmune: None, Other GI: GERD, Ulcers, Hemorrhoids, Hepatitis : Benign prostate hypertrophy, Kidney stones HEENT: Chronic vision loss, Chronic hearing loss Psych: None Musculoskeletal: Osteoarthritis, Chronic back pain Derm: None - Past Surgical History Past Surgical History: Yes General: Appendectomy, Bowel surgery, Colonoscopy, EGD, Other Ortho: Hip replacement, Arthroscopic surgery Cardiovascular: Coronary stent, Other HEENT: Cataracts - Present Medications Home Medications: Ambulatory Orders Medication Instructions Recorded Confirmed Acetaminophen [Pain Relief] 1,000 mg PO TID 01/29/13 08/29/20 Atorvastatin [Lipitor] 20 mg PO DAILY 12/30/13 08/29/20 Metoprolol Succinate 25 mg PO DAILY 07/02/14 08/29/20 Pantoprazole [Protonix] 40 mg PO DAILY 07/02/14 08/29/20 Doxazosin [Cardura] 8 mg PO DAILY 04/02/15 08/29/20 Chlorthalidone 25 mg PO DAILY 03/27/19 08/29/20 Celecoxib [Celebrex] 200 mg PO BID 07/21/20 08/29/20 Montelukast [Singulair] 10 mg PO QPM 07/21/20 08/29/20 cephALEXin [Keflex] 500 mg PO TID #20 cap 08/30/20 - Allergies Allergies/Adverse Reactions: Allergies Allergy/AdvReac Type Severity Reaction Status Date / Time No Known Drug Allergies Allergy Verified 08/29/20 20:46 - Social History Does the pt smoke?: No Smoking Status: Never smoker Does the pt drink ETOH?: No Does the pt have substance abuse?: No - Immunizations Immunizations are current?: Yes - POLST Patient has POLST: No POLST Status: Full Code PD ED PE NORMAL - Vitals Vital signs reviewed: Yes - General General: Alert and oriented X 3, No acute distress, Well developed/nourished - HEENT HEENT: Ears normal, Moist mucous membranes, Pharynx benign - Neck Neck: Supple, no meningeal sign, No adenopathy - Cardiac Cardiac: RRR, No murmur - Respiratory Respiratory: Clear bilaterally - Abdomen Abdomen: Soft, Non tender - Male Male : Deferred - Rectal Rectal: Deferred - Back Back: No CVA TTP - Derm Derm: Normal color, Warm and dry - Extremities Extremities: No edema, No calf tenderness / cord - Neuro Neuro: Alert and oriented X 3, No motor deficit, Normal speech Results - Vitals Vitals: Oxygen O2 Source Room air - Labs Labs: Microbiology 08/29/20 23:15 Urine Culture - Preliminary Urine,Clean Catch Laboratory Tests 08/29/20 08/29/20 08/29/20 20:55 20:55 20:55 WBC 7.3 RBC 4.10 L Hgb 11.5 L Hct 35.8 L MCV 87.3 MCH 28.0 MCHC 32.1 RDW 13.9 Plt Count 161 MPV 9.1 Neut # (Auto) 6.0 Lymph # (Auto) 0.6 L [place] # (Auto) 0.6 Eos # (Auto) 0.1 Baso # (Auto) 0.0 Absolute Nucleated RBC 0.00 Nucleated RBC % 0.0 Sodium 132 L Potassium 4.2 Chloride 97 L Carbon Dioxide 24 Anion Gap 11.0 BUN 40 H Creatinine 2.4 H Estimated GFR (MDRD) 26 L Glucose 128 H Lactic Acid Calcium 8.6 Total Bilirubin 0.8 AST 17 ALT 14 Alkaline Phosphatase 84 C-Reactive Protein 8.6 H Total Protein 6.9 Albumin 3.8 Globulin 3.1 Albumin/Globulin Ratio 1.2 Lipase 48 Urine Color Urine Clarity Urine pH Ur Specific [place] Urine Protein Urine Glucose (UA) Urine Ketones Urine Occult Blood Urine Nitrite Urine Bilirubin Urine Urobilinogen Ur Leukocyte Esterase Urine RBC Urine WBC Ur Squamous Epith Cells Urine Bacteria Ur Microscopic Review Urine Culture Comments Nasal Adenovirus (PCR) Nasal B. parapertussis DNA (PCR) Nasal Coronavir 229E PCR Nasal Coronavir HKU1 PCR Nasal Coronavir NL63 PCR Nasal Coronavir OC43 PCR Nasal Enterovir/Rhinovir PCR Nasal Influenza B PCR Nasal Influenza A PCR Nasal Parainfluen 1 PCR Nasal Parainfluen 2 PCR Nasal Parainfluen 3 PCR Nasal Parainfluen 4 PCR Nasal RSV (PCR) Nasal B.pertussis DNA PCR Nasal C.pneumoniae (PCR) Len Human Metapneumo PCR Nasal M.pneumoniae (PCR) Nasal SARS-CoV-2 (PCR) 08/29/20 08/29/20 08/29/20 21:39 22:00 23:15 WBC RBC Hgb Hct MCV MCH MCHC RDW Plt Count MPV Neut # (Auto) Lymph # (Auto) [place] # (Auto) Eos # (Auto) Baso # (Auto) Absolute Nucleated RBC Nucleated RBC % Sodium Potassium Chloride Carbon Dioxide Anion Gap BUN Creatinine Estimated GFR (MDRD) Glucose Lactic Acid 1.5 Calcium Total Bilirubin AST ALT Alkaline Phosphatase C-Reactive Protein Total Protein Albumin Globulin Albumin/Globulin Ratio Lipase Urine Color YELLOW Urine Clarity SL. CLOUDY Urine pH 5.0 Ur Specific [place] 1.025 Urine Protein NEGATIVE Urine Glucose (UA) NEGATIVE Urine Ketones TRACE Urine Occult Blood SMALL H Urine Nitrite POSITIVE H Urine Bilirubin NEGATIVE Urine Urobilinogen 0.2 (NORMAL) Ur Leukocyte Esterase MODERATE H Urine RBC 6-10 H Urine WBC 11-25 H Ur Squamous Epith Cells FEW Squamous Urine Bacteria Moderate H Ur Microscopic Review INDICATED Urine Culture Comments INDICATED Nasal Adenovirus (PCR) NOT DETECTED Nasal B. parapertussis DNA (PCR) NOT DETECTED Nasal Coronavir 229E PCR NOT DETECTED Nasal Coronavir HKU1 PCR NOT DETECTED Nasal Coronavir NL63 PCR NOT DETECTED Nasal Coronavir OC43 PCR NOT DETECTED Nasal Enterovir/Rhinovir PCR NOT DETECTED Nasal Influenza B PCR NOT DETECTED Nasal Influenza A PCR NOT DETECTED Nasal Parainfluen 1 PCR NOT DETECTED Nasal Parainfluen 2 PCR NOT DETECTED Nasal Parainfluen 3 PCR NOT DETECTED Nasal Parainfluen 4 PCR NOT DETECTED Nasal RSV (PCR) NOT DETECTED Nasal B.pertussis DNA PCR NOT DETECTED Nasal C.pneumoniae (PCR) NOT DETECTED Len Human Metapneumo PCR NOT DETECTED Nasal M.pneumoniae (PCR) NOT DETECTED Nasal SARS-CoV-2 (PCR) NOT DETECTED - Rads (name of study) chest xray Radiology: Prelim report reviewed (no infiltrates), See rad report PD MEDICAL DECISION MAKING - ED course Complexity details: reviewed results (apparent UTI as source. He does not appear ill/septic and able to have home treatment. ), considered differential (bigorous appearing for his age. Has fevers. Will check common sources with CXR, UA, Resp panel, labs.), d/w patient Departure - Departure Disposition: 01 Home, Self Care Clinical Impression: Fever, UTI (urinary tract infection) Condition: Stable Record reviewed to determine appropriate education?: Yes Instructions: ED UTI Cystitis Male Follow-Up: Irving Anderson MD [Primary Care Provider] - Prescriptions: cephALEXin [Keflex] 500 mg PO TID #20 cap Comments: Stay well-hydrated. Tylenol every 4-6 hours if needed for fevers or pains. You do have a urinary tract infection and that seems to be the source of your fever etc. Use cephalexin 3 times a day for a week as prescribed. We will do urine culture and that will result in a couple of days but will call you if we need to amend the antibiotic choice based on that. Return if worsening over the next few days. Discharge Date/Time: 08/30/20 00:42
[2020-08-29] MEDS ORDERED: SODIUM CHLORIDE 0.9% 1,000 ML IV STA (21:34)
[2020-08-29 22:55] LABS: B. PARAPERTUSSIS- RESP PCR PAN NOT DETECTED; B. PERTUSSIS- RESP PCR PANEL NOT DETECTED; C. PNEUMONIAE- RESP PCR PANEL NOT DETECTED; CORONAVIRUS 229E-RESP PCR NOT DETECTED; CORONAVIRUS HKU1-RESP PCR NOT DETECTED; CORONAVIRUS NL63-RESP PCR NOT DETECTED; CORONAVIRUS OC43-RESP PCR NOT DETECTED; HUMAN METAPNEUMOVIRUS NOT DETECTED; INFLUENZA A- RESP PCR PANEL NOT DETECTED; INFLUENZA B - RESP PCR PANEL NOT DETECTED; M. PNEUMONIAE- RESP PCR PANEL NOT DETECTED; PARAINFLUENZA VIRUS 1 NOT DETECTED; PARAINFLUENZA VIRUS 2 NOT DETECTED; PARAINFLUENZA VIRUS 3 NOT DETECTED; PARAINFLUENZA VIRUS 4 NOT DETECTED; RHINOVIRUS/ENTEROVIRUS NOT DETECTED; RSV- RESP PCR PANEL NOT DETECTED; SARS-CoV-2 -RESP PCR PANEL NOT DETECTED
[2020-08-29 23:20] LABS: BILIRUBIN,URINE NEGATIVE (NEGATIVE); GLUCOSE, URINE (UA) NEGATIVE (NEGATIVE); KETONES,URINE (UA) TRACE mg/dL (NEGATIVE); LEUKOCYTE ESTERASE, URINE MODERATE (NEGATIVE); NITRITE,URINE POSITIVE (NEGATIVE); OCCULT BLOOD,URINE SMALL (NEGATIVE); PROTEIN,URINE NEGATIVE (NEGATIVE); UROBILINOGEN,URINE 0.2 (NORMAL) E.U./dL (NORMAL)
[2020-08-29 23:29] LABS: CLARITY,URINE SL. CLOUDY (CLEAR)
[2020-08-29 23:30] LABS: BACTERIA,URINE Moderate /HPF (None Seen); SQUAMOUS EPITHELIAL CELL,UR FEW Squamous (<= Few)
--- NOTE | 2020-08-29 23:38 | XRAY Report ---
PROCEDURE: Chest 1 View X-Ray INDICATIONS: chest pain TECHNIQUE: One view of the chest was acquired. COMPARISON: 03/05/2017 FINDINGS: Surgical changes and devices: Remote CABG. Lungs and pleura: No pleural effusions or pneumothorax. Lungs are clear. Mild chronic interstitial change. Mediastinum: Mediastinal contours appear normal. Heart size is normal. Bones and chest wall: No suspicious bony lesions. Overlying soft tissues appear unremarkable. IMPRESSION: Mild chronic interstitial change. No evidence acute pulmonary process. A preliminary report with the above findings was provided at the time of the study by [facility]. Reviewed by: Venu Silverman MD on 08/29/2020 10:36 PM [facility] Approved by: Venu Silverman MD on 08/29/2020 10:36 PM [facility] Station ID: [id number]
[2020-08-29] MEDS ORDERED: cefTRIAXone 1 GM VIAL IVP STA (23:53)
[2020-08-30 00:43] VITALS: BP 137/66
== END 2020-08-30 00:42 | disposition home or self-care (01) ==
LOC: ED 20:34
DX: N39.0 Urinary tract infection, site not specified (principal); Z20.822 Contact with and (suspected) exposure to COVID-19
CPT/HCPCS: 0202U; 36415; 80053; 81001; 81003; 83605; 83690; 85025; 86140; 87077; 87086; 87181; 96361; 96374; 99283

== ENCOUNTER 2020-12-30 10:50 | Outpatient (CLI) | payer MEDICARE ==
--- NOTE | 2020-12-30 15:41 | MRI Report ---
PROCEDURE: Lumbar Spine W/O INDICATIONS: LEG WEAKNESS, LOW BACK PAIN TECHNIQUE: Noncontrast sagittal T1 spin echo and T2 fast echo, sagittal STIR, axial T1 and T2 fast spin echo thr ough the lumbar spine. Axial and oblique coronal T1 spin echo and STIR through the sacrum. In cases with scoliosis, additional coronal T2 fast spin echo may be performed. COMPARISON: None. FINDINGS: Alignment and Curvature: Straightening of the normal lordotic curvature. Grade 1 retrolisthesis of L 2 on L3 Bone Marrow: Multilevel endplate degenerative sclerosis and spurring. Diffuse facet arthropathy. No evidence of acute fracture. Scattered Schmorl's nodes incidentally noted. Spinal Cord: Conus medullaris terminates at the T12-L1 level. Visualized cord demonstrates normal s ignal and size. Paraspinous Soft Tissues: Subcentimeter renal foci which are statistically cysts, however too to marsha racterize accurately and therefore technically indeterminate. T12-L1: Mild canal narrowing. Partial effacement of the left and right lateral recesses with symmetr ic appearance. Mild bilateral foraminal stenoses. L1-L2: Moderate canal narrowing. Partial effacement of the left and right lateral recesses with sy mmetric appearance. Moderate bilateral foraminal stenoses L2-L3: Mild canal narrowing. Partial effacement of the left and right lateral recesses with symmet dominick appearance. Mild left foraminal narrowing. Moderate to severe right foraminal stenosis with nerve root compression L3-L4: Moderate canal narrowing. Severe left foraminal stenosis with slight nerve root compression. Moderate to severe right foraminal narrowing. L4-L5: Mild canal narrowing. Partial effacement of the left and right lateral recesses with symmetr ic appearance. Moderate to severe left foraminal stenosis. Mild right foraminal narrowing. L5-S1: No canal narrowing. Lateral recess appear grossly patent. Mild bilateral foraminal narrowing Sacrum: Visualized sacral plexus appears normal. IMPRESSION: Moderate canal stenosis at L1-L2 and L3-L4. Numerous bilateral foraminal stenoses as outlined by spinal level. Straightening of the normal lordotic curvature. Reviewed by: True Denney MD on 12/30/2020 3:40 PM PDT Approved by: True Denney MD on 12/30/2020 3:40 PM PDT Station ID: [id number]
== END 2020-12-30 10:51 | disposition home or self-care (01) ==
LOC: DI 10:50
PROVIDERS: ATTEND Internal Medicine
DX: M54.50 Low back pain, unspecified (principal); R29.898 Other symptoms and signs involving the musculoskeletal system; M48.061 Spinal stenosis, lumbar region without neurogenic claudication

== ENCOUNTER 2021-01-08 10:45 | Outpatient (CLI) | payer MEDICARE ==
--- NOTE | 2021-01-08 11:56 | XRAY Report ---
PROCEDURE: Hip w/Pelvis 2-3V LT INDICATIONS: POST OPERATIVE CARE LEFT HIP TECHNIQUE: AP pelvis with lateral view(s) of the bilateral hip(s). COMPARISON: 07/18 FINDINGS: Bones: Postoperative changes of total left hip placement. There is no pericardial hardware or hardwar e fracture. Soft tissues: The visualized bowel gas pattern is normal. No suspicious soft tissue calcifications. Radiation beads are seen in the prostate. IMPRESSION: Postoperative changes of total left hip replacement without complication Reviewed by: Yadiel Mayer on 01/08/2021 11:55 AM PST Approved by: Yadiel Mayer on 01/08/2021 11:55 AM PST Station ID: [id number]
== END 2021-01-08 23:59 | disposition home or self-care (01) ==
LOC: DI.N 10:45
PROVIDERS: ATTEND Physician Assistant
DX: Z48.89 Encounter for other specified surgical aftercare (principal); Z96.642 Presence of left artificial hip joint

== ENCOUNTER 2021-11-05 10:34 | Outpatient (CLI) | payer MEDICARE ==
[2021-11-06 14:51] LABS: BASOPHILS % (AUTO) 0.5 %; EOSINOPHILS # (AUTO) 0.2 10^3/uL (0.0-0.7); EOSINOPHILS % (AUTO) 2.9 %; HCT - HEMATOCRIT 37.8 % (42.0-52.0); HGB - HEMOGLOBIN 12.5 g/dL (14.0-18.0); LYMPHOCYTES # (AUTO) 1.2 10^3/uL (1.5-3.5); MEAN CORPUSCULAR HEMOGLOBIN 29.3 pg (27.0-31.0); MEAN CORPUSCULAR HGB CONC 33.1 g/dL (32.0-36.0); MEAN CORPUSCULAR VOLUME 88.5 fL (80.0-94.0); MEAN PLATELET VOLUME 9.4 fL (7.4-11.4); MONOCYTES # (AUTO) 0.5 10^3/uL (0.0-1.0); MONOCYTES % (AUTO) 8.8 %; NEUTROPHILS # (AUTO) 3.9 10^3/uL (1.5-6.6); NEUTROPHILS % (AUTO) 67.3 %; PLT - PLATELET COUNT 182 10^3/uL (130-450); RED BLOOD COUNT 4.27 10^6/uL (4.70-6.10); RED CELL DISTRIBUTION WIDTH 13.7 % (12.0-15.0); WHITE BLOOD COUNT 5.8 x10^3/uL (4.8-10.8)
[2021-11-06 15:27] LABS: ALBUMIN/GLOBULIN RATIO 1.5 (1.0-2.2); ALKALINE PHOSPHATASE 57 IU/L (42-121); ALT ALANINE AMINOTRANSFERASE 21 IU/L (10-60); AST ASPARTATE AMINOTRANSFERASE 21 IU/L (10-42); BILIRUBIN,TOTAL 0.5 mg/dL (0.2-1.0); BUN - BLOOD UREA NITROGEN 35 mg/dL (6-20); CALCIUM 8.9 mg/dL (8.5-10.3); CARBON DIOXIDE - CO2 29 mmol/L (21-32); CHLORIDE 98 mmol/L (101-111); CHOL/HDL RATIO 3.6 (<5.0); CHOLESTEROL 111 mg/dL; CREATININE 2.3 mg/dL (0.6-1.2); GFR - MDRD 27 (>89); GLUCOSE 104 mg/dL (70-100); HDL CHOLESTEROL 31 mg/dL; LDL CHOLESTEROL,CALCULATED 58 mg/dL; LDL/HDL RATIO 1.9 (<3.6); POTASSIUM 3.7 mmol/L (3.5-5.0); SODIUM 134 mmol/L (135-145); TOTAL PROTEIN 6.7 g/dL (6.7-8.2); TRIGLYCERIDES 112 mg/dL; VLDL CHOLESTEROL 22 mg/dL
== END 2021-11-05 10:35 | disposition home or self-care (01) ==
LOC: LAB.S 10:34
PROVIDERS: ATTEND Physician Assistant
DX: I12.9 Hypertensive chronic kidney disease with stage 1 through stage 4 chronic kidney disease, or unspecified chronic kidney disease (principal); N18.9 Chronic kidney disease, unspecified; E78.5 Hyperlipidemia, unspecified
CPT/HCPCS: 36415; 80053; 80061; 83721; 85025

== ENCOUNTER 2022-01-26 14:17 | Emergency (ER) | payer MEDICARE ==
[2022-01-26] MEDS ORDERED: SODIUM CHLORIDE 0.9% 1,000 ML IV STA (14:28)
--- NOTE | 2022-01-26 14:31 | ED Physician Documentation ---
History of Present Illness - Stated complaint Stated Complaint: SOA - History obtained from History obtained from: Patient - Additonal information Additional information: The patient is brought to the emergency department with chief complaint of aches, mild cough, and congestion, as well as a panic attack after testing positive for COVID at home. The patient states that he has just heard so many bad things about COVID that he was very afraid when he saw he tested positive. The patient is vaccinated with the first 2 doses of the Pfizer vaccine but has not received a booster since. He denies any fevers or chills. He denies shortness of breath or chest pain. He has had nausea but no vomiting. Patient states that once the medics coached him through breathing, it helped him calm down and now, he is actually feeling pretty good. No other complaints at this time. Review of Systems Ten Systems: 10 systems reviewed and negative Constitutional: reports: Reviewed and negative Eyes: reports: Reviewed and negative Ears: reports: Reviewed and negative Nose: reports: Congestion Throat: reports: Reviewed and negative Cardiac: reports: Reviewed and negative Respiratory: reports: Cough GI: reports: Reviewed and negative : reports: Reviewed and negative Skin: reports: Reviewed and negative Musculoskeletal: reports: Reviewed and negative Neurologic: reports: Headache Psychiatric: reports: Reviewed and negative Endocrine: reports: Reviewed and negative Immunocompromised: reports: Reviewed and negative PD PAST MEDICAL HISTORY - Past Medical History Cardiovascular: Hypertension, High cholesterol, Coronary artery disease, Atrial fibrillation Respiratory: Asthma Neuro: Fainting Endocrine/Autoimmune: None, Other GI: GERD, Ulcers, Hemorrhoids, Hepatitis : Benign prostate hypertrophy, Kidney stones HEENT: Chronic vision loss, Chronic hearing loss Psych: None Musculoskeletal: Osteoarthritis, Chronic back pain Derm: None - Past Surgical History Past Surgical History: Yes General: Appendectomy, Bowel surgery, Colonoscopy, EGD, Other Ortho: Hip replacement, Arthroscopic surgery Cardiovascular: Coronary stent, Other HEENT: Cataracts - Present Medications Home Medications: Ambulatory Orders Medication Instructions Recorded Confirmed Acetaminophen [Pain Relief] 1,000 mg PO TID 01/29/13 08/29/20 Atorvastatin [Lipitor] 20 mg PO DAILY 12/30/13 08/29/20 Metoprolol Succinate 25 mg PO DAILY 07/02/14 08/29/20 Pantoprazole [Protonix] 40 mg PO DAILY 07/02/14 08/29/20 Doxazosin [Cardura] 8 mg PO DAILY 04/02/15 08/29/20 Chlorthalidone 25 mg PO DAILY 03/27/19 08/29/20 Celecoxib [Celebrex] 200 mg PO BID 07/21/20 08/29/20 Montelukast [Singulair] 10 mg PO QPM 07/21/20 08/29/20 cephALEXin [Keflex] 500 mg PO TID #20 cap 08/30/20 - Allergies Allergies/Adverse Reactions: Allergies Allergy/AdvReac Type Severity Reaction Status Date / Time No Known Drug Allergies Allergy Verified 01/26/22 14:29 - Social History Does the pt smoke?: No Smoking Status: Never smoker Does the pt drink ETOH?: No Does the pt have substance abuse?: No - Immunizations Immunizations are current?: Yes - POLST Patient has POLST: No POLST Status: Full Code PD ED PE NORMAL - Vitals Vital signs reviewed: Yes - General General: Alert and oriented X 3, No acute distress, Well developed/nourished - HEENT HEENT: Atraumatic, PERRL, EOMI, Moist mucous membranes - Neck Neck: Supple, no meningeal sign - Cardiac Cardiac: RRR, No murmur, Strong equal pulses - Respiratory Respiratory: No respiratory distress, Clear bilaterally - Abdomen Abdomen: Soft, Non tender, Non distended - Derm Derm: Normal color, Warm and dry, No rash - Extremities Extremities: No deformity, No edema - Neuro Neuro: Alert and oriented X 3, Other (Grossly intact) - Psych Psych: Normal mood, Normal affect Results - Vitals Vitals: Vital Signs - 24 hr 01/26/22 01/26/22 14:27 16:36 Temperature 37.3 C Heart Rate 77 65 Respiratory 16 16 Rate Blood Pressure 151/69 H 152/63 H O2 Saturation 100 99 Oxygen O2 Source Room air - Rads (name of study) chest x-ray Radiology: Final report received, EMP read indepedently, See rad report (nad) PD MEDICAL DECISION MAKING - ED course Complexity details: reviewed results, re-evaluated patient, considered differential, d/w patient ED course: The patient was worked up with a chest x-ray, which was unremarkable. His lungs were clear and oxygen saturation was 100% on room air. He was treated with a 1 L bolus of 0.9 normal saline. I felt he was stable for discharge home. We have discussed home management of symptoms, the expected timeline of illness, and the usual indications for return. Departure - Departure Disposition: 01 Home, Self Care Clinical Impression: COVID Condition: Stable Instructions: ED Viral Syndrome Comments: Your lungs are clear, your oxygen saturation is high, and your chest x-ray is negative. You have pretty mild symptoms at this point in time and there is no evidence of any complications of COVID. Most of the cases of COVID that we are seeing are just like the other cold/flu illnesses going around at this time. While you are feeling sick, you should stay home, whether you have COVID or something else. When you are feeling better, you may go out and about. Please drink plenty of fluids and take ibuprofen and Tylenol if needed for aches, fevers, or other discomforts. Discharge Date/Time: 01/26/22 16:36
--- NOTE | 2022-01-26 15:02 | XRAY Report ---
PROCEDURE: Chest 1 View X-Ray INDICATIONS: chest pain TECHNIQUE: One view of the chest was acquired. COMPARISON: Chest radiograph 08/29/2020. FINDINGS: Surgical changes and devices: Median sternotomy wires are present. Electronic device projects over t he left chest. Lungs and pleura: No pleural effusions or pneumothorax. Lungs are clear. Mediastinum: Mediastinal contours appear normal. Heart size is normal. Bones and chest wall: No suspicious bony lesions. Overlying soft tissues appear unremarkable. IMPRESSION: No acute cardiopulmonary abnormality. Reviewed by: Angel Luis Erickson MD on 01/26/2022 2:01 PM [facility] Approved by: Angel Luis Erickson MD on 01/26/2022 2:01 PM [facility] Station ID: [id number]
[2022-01-26 16:37] VITALS: BP 152/63
== END 2022-01-26 16:36 | disposition home or self-care (01) ==
LOC: EDUNIT# → ED 14:17 → SUPCPDRO 14:17 → ED 16:36
DX: U07.1 COVID-19 (principal); R05.9 Cough, unspecified; R09.81 Nasal congestion; R51.9 Headache, unspecified; R11.0 Nausea; I10 Essential (primary) hypertension; I25.10 Atherosclerotic heart disease of native coronary artery without angina pectoris; Z95.5 Presence of coronary angioplasty implant and graft; J45.909 Unspecified asthma, uncomplicated; Z79.899 Other long term (current) drug therapy
CPT/HCPCS: 36415; 99282; 99283

== ENCOUNTER → 2022-01-26 | Outpatient (CLI) | payer MEDICARE | END | disposition critical access hospital (66) | LOC: EMS 13:46 | DX: U07.1 COVID-19 (principal); F41.9 Anxiety disorder, unspecified | CPT/HCPCS: A0425; A0429 ==

== ENCOUNTER 2022-04-07 12:43 | Outpatient (CLI) | payer MEDICARE ==
[2022-04-07 15:44] LABS: ALBUMIN 3.9 g/dL (3.2-5.5); ALBUMIN/GLOBULIN RATIO 1.3 (1.0-2.2); BILIRUBIN,TOTAL 0.7 mg/dL (0.2-1.0); CALCIUM 10.3 mg/dL (8.5-10.3); CREATININE 2.4 mg/dL (0.6-1.2); POTASSIUM 4.5 mmol/L (3.5-5.0)
== END 2022-04-07 12:44 | disposition home or self-care (01) ==
LOC: LAB.S 12:43
PROVIDERS: ATTEND Orthopaedic Surgery
DX: R20.2 Paresthesia of skin (principal)
CPT/HCPCS: 36415; 80053

== ENCOUNTER 2022-04-09 11:16 | Outpatient (CLI) | payer MEDICARE ==
[2022-04-09 11:33] LABS: BASOPHILS % (AUTO) 0.7 %; EOSINOPHILS # (AUTO) 0.2 10^3/uL (0.0-0.7); EOSINOPHILS % (AUTO) 4.1 %; HGB - HEMOGLOBIN 12.3 g/dL (14.0-18.0); LYMPHOCYTES # (AUTO) 1.3 10^3/uL (1.5-3.5); LYMPHOCYTES % (AUTO) 22.4 %; MEAN CORPUSCULAR HEMOGLOBIN 28.8 pg (27.0-31.0); MEAN CORPUSCULAR HGB CONC 31.5 g/dL (32.0-36.0); MEAN CORPUSCULAR VOLUME 91.3 fL (80.0-94.0); MEAN PLATELET VOLUME 8.8 fL (7.4-11.4); MONOCYTES # (AUTO) 0.5 10^3/uL (0.0-1.0); NEUTROPHILS # (AUTO) 3.5 10^3/uL (1.5-6.6); NEUTROPHILS % (AUTO) 63.4 %; PLT - PLATELET COUNT 173 10^3/uL (130-450); RED BLOOD COUNT 4.27 10^6/uL (4.70-6.10); RED CELL DISTRIBUTION WIDTH 13.3 % (12.0-15.0); WHITE BLOOD COUNT 5.6 x10^3/uL (4.8-10.8)
== END 2022-04-09 11:17 | disposition home or self-care (01) ==
LOC: LAB 11:16
PROVIDERS: ATTEND Orthopaedic Surgery
DX: I48.91 Unspecified atrial fibrillation (principal); E78.5 Hyperlipidemia, unspecified; G56.03 Carpal tunnel syndrome, bilateral upper limbs; N28.9 Disorder of kidney and ureter, unspecified; I10 Essential (primary) hypertension
CPT/HCPCS: 36415; 85025; 93005

== ENCOUNTER 2022-07-22 09:22 | Outpatient (CLI) | payer MEDICARE ==
[2022-07-22 14:34] LABS: BASOPHILS % (AUTO) 0.5 %; EOSINOPHILS # (AUTO) 0.2 10^3/uL (0.0-0.7); EOSINOPHILS % (AUTO) 3.7 %; HCT - HEMATOCRIT 36.3 % (42.0-52.0); HGB - HEMOGLOBIN 11.3 g/dL (14.0-18.0); LYMPHOCYTES # (AUTO) 1.6 10^3/uL (1.5-3.5); LYMPHOCYTES % (AUTO) 24.7 %; MEAN CORPUSCULAR HEMOGLOBIN 28.3 pg (27.0-31.0); MEAN CORPUSCULAR HGB CONC 31.1 g/dL (32.0-36.0); MEAN CORPUSCULAR VOLUME 90.8 fL (80.0-94.0); MEAN PLATELET VOLUME 9.3 fL (7.4-11.4); MONOCYTES # (AUTO) 0.6 10^3/uL (0.0-1.0); MONOCYTES % (AUTO) 9.9 %; NEUTROPHILS % (AUTO) 60.7 %; PLT - PLATELET COUNT 201 10^3/uL (130-450); RED CELL DISTRIBUTION WIDTH 13.9 % (12.0-15.0); WHITE BLOOD COUNT 6.5 x10^3/uL (4.8-10.8)
[2022-07-22 15:20] LABS: ALBUMIN/GLOBULIN RATIO 1.3 (1.0-2.2); BILIRUBIN,TOTAL 0.7 mg/dL (0.2-1.0); CREATININE 1.8 mg/dL (0.6-1.2); POTASSIUM 4.5 mmol/L (3.5-5.0)
== END 2022-07-22 09:23 | disposition home or self-care (01) ==
LOC: LAB.S 09:22
PROVIDERS: ATTEND Physician Assistant
DX: I95.1 Orthostatic hypotension (principal); N18.9 Chronic kidney disease, unspecified
CPT/HCPCS: 36415; 80053; 85025

== ENCOUNTER 2022-10-14 07:44 | Day surgery (SDC) | payer MEDICARE ==
--- NOTE | 2022-10-14 08:26 | ANESTHESIA ---
Pre-Anesthesia VS, & Labs - Diagnosis Barretts esophagus, dysphagia - Procedure EGD Vital Signs: Temp Pulse Resp BP Pulse Ox O2 Flow Rate 36 C L 58 L 14 146/77 H 95 10/14/22 08:01 10/14/22 08:01 10/14/22 08:01 10/14/22 08:01 10/14/22 08:01 Height: 5 ft 10 in Weight (kg): 86.2 kg Body Mass Index: 27.2 BMI Classification: Overweight - NPO >8 hours Home Medications and Allergies Acetaminophen [Pain Relief] 1,000 mg PO TID 01/29/13 Atorvastatin [Lipitor] 20 mg PO DAILY 12/30/13 Metoprolol Succinate 25 mg PO DAILY 07/02/14 Pantoprazole [Protonix] 40 mg PO DAILY 07/02/14 Doxazosin [Cardura] 8 mg PO DAILY 04/02/15 Chlorthalidone 25 mg PO DAILY 03/27/19 Celecoxib [Celebrex] 200 mg PO BID 07/21/20 Montelukast [Singulair] 10 mg PO QPM 07/21/20 Allergies/Adverse Reactions: Allergies Allergy/AdvReac Type Severity Reaction Status Date / Time No Known Drug Allergies Allergy Verified 10/13/22 13:12 Anes History & Medical History - Anesthetic History Anesthesia Complications: reports: No previous complications - Medical History Cardiovascular: reports: Hypertension, High cholesterol, Coronary artery disease (s/p stent), Atrial fibrillation Pulmonary: reports: Asthma Gastrointestinal: reports: GERD, Ulcers, Hemorrhoids, Hepatitis Urinary: reports: Benign prostate hypertrophy, Kidney stones Neuro: reports: Fainting Musculoskeletal: reports: Osteoarthritis, Chronic back pain Endocrine/Autoimmune: reports: None, Other Skin: reports: None Smoking Status: Never smoker Psychosocial: reports: No issues indicated History of Cancer?: Yes (prostate s/p radiation seeds) - Surgical History General: reports: Appendectomy, Bowel surgery, Colonoscopy, EGD, Other Eyes Ears Nose Throat (EENT): reports: Cataracts Cardiothoracic: reports: Coronary stent, Other Urologic: reports: Bladder surgery, Prostatic surgery Orthopedic: reports: Hip replacement, Arthroscopic surgery Exam General: Alert, Oriented x3, Cooperative, No acute distress Dental: WNL Mouth Openin Fingerbreadth Neck Mobility: Normal Mallampati classification: II Thyromental Distance: 4-6 cm Mental/Cognitive Status: Alert/Oriented X3, Normal for patient Plan Anesthesia Type: General, Total IV Consent for Procedure(s) Verified and Reviewed: Yes Code Status: Attempt Resuscitation ASA classification: 3-Severe systemic disease Is this case an emergency?: No
[2022-10-14] MEDS ORDERED: LACTATED RINGERS 1,000 ML IV ONE (08:30)
[2022-10-14] MEDS ORDERED: PROPOFOL 500 MG/50 ML 500 MG/50 ML VIAL ONE ×2 (09:02→10:13)
[2022-10-14] MEDS ORDERED: LIDOCAINE-PF 2% 10 ML AMP SUBQ ONE (09:02)
[2022-10-14] MEDS ORDERED: LACTATED RINGERS 700 ML IV ONE (09:08)
[2022-10-14 09:38] VITALS: BP 126/59; O2SAT 100
--- NOTE | 2022-10-14 09:54 | ANESTHESIA POST OP EVALUATION ---
Anesthesia Post Eval - Post Anesthesia Eval Vitals: Last Vital Signs Temp 36.0 C L 10/14/22 09:30 Pulse 48 L 10/14/22 09:30 Resp 16 10/14/22 09:30 BP 126/59 L 10/14/22 09:30 Pulse Ox 100 10/14/22 09:30 O2 Flow Rate CV Function Including HR & BP: Stable Pain Control: Satisfactory Nausea & Vomiting: Negative Mental Status: Baseline Respiratory Status: Airway Patent Hydration Status: Satisfactory Anesthesia Complications: None
[2022-10-14] MEDS ORDERED: PROPOFOL 200 MG/20 ML VIAL IVP ONE (11:24)
== END 2022-10-14 07:45 | disposition home or self-care (01) ==
LOC: SDS 07:44
PROVIDERS: ATTEND Surgery
PROC: 0DB28ZX Excision of Middle Esophagus, Via Natural or Artificial Opening Endoscopic, Diagnostic (ICD-10-PCS; 2022-10-14)
PROC: 0DB38ZX Excision of Lower Esophagus, Via Natural or Artificial Opening Endoscopic, Diagnostic (ICD-10-PCS; principal; 2022-10-14 08:45)
DX: R13.10 Dysphagia, unspecified (principal); K44.9 Diaphragmatic hernia without obstruction or gangrene; J45.40 Moderate persistent asthma, uncomplicated; I12.9 Hypertensive chronic kidney disease with stage 1 through stage 4 chronic kidney disease, or unspecified chronic kidney disease; N18.30 Chronic kidney disease, stage 3 unspecified; Z87.19 Personal history of other diseases of the digestive system; Z87.891 Personal history of nicotine dependence
CPT/HCPCS: 43239; J7120

== ENCOUNTER 2023-10-17 10:19 | Outpatient (CLI) | payer MEDICARE ==
--- NOTE | 2023-10-20 22:12 | XRAY Report ---
PROCEDURE: Hip w/Pelvis 2-3V LT INDICATIONS: HIP JOINT PAIN,LEFT TECHNIQUE: 4 views of the hip were acquired. COMPARISON: Prior pelvis dated 07/30/2020 FINDINGS: Bones: No fractures or dislocations. No suspicious bony lesions. Left hip arthroplasty present wi th prosthetic components in expected positions. No periprosthetic fractures. Mild right hip joint deg eneration. Soft tissues: No suspicious soft tissue calcifications or masses. Peel prosthesis again noted. IMPRESSION: Stable appearance of left hip arthroplasty. Reviewed by: TRELL Taylor on 10/20/2023 10:11 PM PDT Approved by: Aylin Carpio MD on 10/20/2023 10:11 PM PDT Station ID: [id number]
== END 2023-10-17 10:20 | disposition home or self-care (01) ==
LOC: DI.S 10:19
PROVIDERS: ATTEND Physician Assistant
DX: M25.552 Pain in left hip (principal); Z96.642 Presence of left artificial hip joint

== ENCOUNTER 2023-11-17 08:00 | Outpatient (CLI) | payer MEDICARE | END 2023-11-17 23:59 | disposition home or self-care (01) | LOC: LAB.S 08:00 | PROVIDERS: ATTEND Registered Nurse | DX: R07.0 Pain in throat (principal) | CPT/HCPCS: 87070 ==